=== PATIENT | male | born 1975 | race Caucasian/White ===

== ENCOUNTER 2020-10-31 18:25 | Emergency (ER) | payer OTHER, SELFPAY ==
[2020-10-31 18:26] VITALS: BP 104/83; PULSE 93; RESP 14; TEMP 36.7; O2SAT 99; BMI 22.5
--- NOTE | 2020-10-31 18:46 | ED.VIS.GEN ---
History of Present Illness Chief Complaint: Upper Extremity Injury Informant: Patient Narrative: Patient is a 45-year-old male who presents to the emergency department for left shoulder pain and difficulty moving. This has been present over the past 2 days. He relates this to a fall that occurred in June of last year whenever he slipped on the ice landing on his shoulder. He had significant pain and issues moving it but was never seen. He was doing well until the past few days when his symptoms reflared up. He denies any trauma this time. He does have a history of ankylosing spondylitis and has cervical fusions. He has neck pain on that left side as well. Any movements or pushing on the area makes it worse. He has been taking ibuprofen for it. He denies any headache or vision changes. No weakness or loss of sensation in other extremities. No chest pain or shortness of breath. No fevers or chills. No overlying skin changes. He has noticed a lump in his lateral left upper arm. Of note patient states he has not been compliant with his insulin and oral diabetic medications due to loss of insurance. He states he just regained this. He is currently searching for PCP now. Past Medical History - Allergies and Home Meds Allergies/Adverse Reactions: Allergies No Known Allergies Allergy (Verified 10/31/20 18:26) Primary Care Physician: Marc Delgado MD [STAFF PHYSICIAN] - As soon as possible Christian Keith DO [STAFF PHYSICIAN] - 2 Days Care Physician,No Primary [Primary Care Provider] - Prior records reviewed: Yes Past Medical History: - - Diabetes Surgical History: noncontributory Smoking Status: Former smoker Review of Systems All systems negative except as indicated General: Denies: Chills, Fever, Sweats Eyes: Denies: Visual changes - bilaterally, Diplopia ENT: Denies: Rhinorrhea, Sore throat Cardiovascular: Denies: Chest pain, Palpitations Respiratory: Denies: Dyspnea, Cough, Dyspnea on exertion Gastrointestinal: Denies: Abdominal pain, Nausea, Vomiting Genitourinary: Denies: Dysuria, Hematuria, Frequency Musculoskeletal: Reports: Neck pain, Extremity Pain. Denies: Back pain Skin: Denies: Rash, Wounds Neurological: Denies: Headache, Numbness Physical Exam Vital Signs/Narrative: Vital Signs Temp Pulse Resp BP Pulse Ox 10/31/20 18:26 98.1 F 93 14 104/83 H 99 Inital Vital Signs reviewed: Yes General: Well nourished, Well developed, No Acute Distress Head: Normocephalic, Atraumatic Eyes: Perrl, EOMI ENT: Moist mucous membranes, No rhinorrhea Neck: Supple, - - Patient has tenderness and taut musculature over the left trapezius muscle. Cardiovascular: Regular rate, Regular rhythm, No murmurs Respiratory: No distress, CTA bilaterally, Chest nontender Abdomen: Soft, Nontender, Nondistended, Normal bowel sounds Back: Nontender, Normal Inspection Extremities: Nontender, No edema, - - Patient does have a lump between the bicep and tricep concerning for a tendon rupture. Patient able to raise his arm over his head but this does cause significant pain. 2+ radial pulse. Sensation intact. Skin: Normal color, No rash Neurological: Alert, Oriented x3, Cranial nerves II-XII grossly intact, Normal Strength, Normal Sensation Psychological: Normal affect, Normal Mood Diagnostic/Tx/Re-eval - Medical Decision Making Patient presents to the ED for left shoulder pain with difficulty moving it. He also has pain in his neck. On physical exam he is very tender to palpation and has a tight musculature. He has a previous fall injury 4 months ago. Will check an x-ray of the shoulder. I concern for a tendon rupture and will make an orthopedic referral for MRI. Patient has regained his insurance and I will make a PCP referral. Will check [id number] glucose in the meantime. Patient's x-ray did not reveal any acute traumatic findings. His glucose was high in the 470 range. He is given a 6 unit subcu dose of insulin. He was previously on Metformin so I will write a prescription for this. I did give a PCP referral for him to follow-up with. Patient understands risks associated with hyperglycemia. I do have concern that he has a tendon tear in his shoulder. No evidence of infection. He is given a prescription for Flexeril as well as Naprosyn. He needs to have very close follow-up with the orthopedic surgeon as well as his PCP. Return precautions are reviewed with him. He is agreeable this plan. Discharged home in stable condition. All questions answered. ED Disposition - Plan for ED Patient: Disposition: Home or Assisted Living Diagnosis: Hyperglycemia, Shoulder pain, left Instructions: Shoulder Problems, ED Diabetic Hyperglycemia Prescriptions: cycloBENZAPRine HCl [Flexeril] 10 mg PO TID PRN 3 Days #9 tab PRN Reason: Muscle Spasm Prescription Printed Metformin HCl 500 mg PO BID 15 Days #30 tab Prescription Printed Naproxen [Naprosyn] 500 mg PO BID #14 tab Prescription Printed Referrals: Care Physician,No Primary [Primary Care Provider] - Marc Delgado MD [STAFF PHYSICIAN] - As soon as possible Christian Keith DO [STAFF PHYSICIAN] - 2 Days
--- NOTE | 2020-10-31 19:00 | RAD_ITS ---
STUDY: X-RAY - LEFT SHOULDER REASON FOR EXAM: Male, 45 years old. Pain, difficulty moving TECHNIQUE: 4 view(s) of the shoulder. COMPARISON: None. FINDINGS: Normal glenohumeral articulation. Normal acromioclavicular joint. Normal acromion. Normal humeral head and visualized proximal humerus. The soft tissue structures are unremarkable. Normal visualized pulmonary apex. RAD/Shoulder min 2 Views IMPRESSION: Normal x-ray examination of the shoulder. Electronically Signed: Thomas Boyd MD at 19:15 EDT Tel , Service support ,
[2020-10-31 19:15] LABS: Bedside Glucose 476 mg/dL (70-110)
[2020-10-31] MEDS: Insulin Lispro 100 UNIT/ML INSULN.PEN 6 UNIT SC (20:01)
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
[2020-10-31 21:05] LABS: Bedside Glucose 366 mg/dL (70-110)
[2020-10-31 21:10] VITALS: BP 116/84; PULSE 78; RESP 14; O2SAT 99
== END 2020-10-31 21:11 | disposition home or self-care (01) ==
LOC: ED 19:40
PROVIDERS: Emergency Provider Emergency Medicine
DX: M25.512 Pain in left shoulder (principal); R22.32 Localized swelling, mass and lump, left upper limb; E11.65 Type 2 diabetes mellitus with hyperglycemia; W00.0XXA Fall on same level due to ice and snow, initial encounter; Y93.9 Activity, unspecified; Y92.9 Unspecified place or not applicable; M45.2 Ankylosing spondylitis of cervical region; Z98.1 Arthrodesis status; Z91.14 Patient's other noncompliance with medication regimen; Z79.4 Long term (current) use of insulin; Z87.891 Personal history of nicotine dependence
CPT/HCPCS: 73030; 82962; 96372; 99282

== ENCOUNTER → 2020-11-03 11:33 | Outpatient (CLI) | payer OTHER, SELFPAY ==
[2020-11-03 10:09] VITALS: BMI 22.4
[2020-11-03 14:58] LABS: Absolute Lymphocyte Count 1.93 X10^3/uL (0.83-4.51); Absolute Neutrophil Count 4.8 X10^3/uL (2.0-7.7); Basophil# 0.03 X10^3/uL; Basophil% 0.4 % (0-1); Eosinophil# 0.16 X10^3/uL; Eosinophils% 2.1 % (0-5); Hematocrit 45.6 % (40-54); Hemoglobin 15.3 g/dL (13.0-16.5); Lymphocyte # 1.93 X10^3/ul (4.0); Lymphocyte % 25.5 % (19-41); Mean Corp Hgb Conc 33.6 g/dL (32-36); Mean Corpuscular Hgb 31.2 pg (27.0-32.0); Mean Corpuscular Volume 92.9 fL (80-94); Mean Platelet Vol. 9.8 fl (6.2-12.0); Monocyte# 0.64 X10^3/uL; Monocyte% 8.5 % (0-10); NRBC Flagged by Analyzer 0 % (0-5); Neutrophil # 4.78 X10^3/uL (2.7-7.7); Neutrophil % 63.1 % (47-70); Platelet Count 282 K/mm3 (150-450); RBC Distribution Width CV 11.7 % (11.6-14.6); RBC Distribution Width SD 39.9 fl (35.1-43.9); Red Blood Count 4.91 M/mm3 (4.6-6.2); White Blood Count 7.6 K/mm3 (4.4-11.0)
[2020-11-03 15:27] LABS: Hemoglobin A1c 11.7 % (3.8-5.6)
[2020-11-03 15:38] LABS: ALB/GLOB Ratio 1.1 RATIO (0.9-2.4); AST(SGOT) 11 U/L (15-37); Alanine Aminotransfer ALT/SGPT 27 U/L (16-61); Albumin, Serum 3.9 g/dL (3.2-5.0); Alkaline Phosphatase 167 U/L (45-117); Anion Gap 4 (5-15); BUN 15 mg/dL (7-18); BUN/Creat Ratio 19.2 RATIO (10-20); Chloride 97 mmol/L (98-107); Cholesterol 190 mg/dL (200); Creatinine, Serum 0.78 mg/dL (0.70-1.30); EST Glomerular Filtration Rate 115 mL/min (>60); Est Glom Filt Rate - Afr Amer 139 mL/min (>60); Globulin 3.7 g/dL (2.2-4.2); Glucose 350 mg/dL (74-106); High Density Lipoprotein 43 mg/dL; Potassium 4.3 mmol/L (3.5-5.1); Protein, Total 7.6 g/dL (6.4-8.2); Sodium Level 132 mmol/L (136-145); Thyroid Stim Hormone (TSH) 1.73 uIU/mL (0.358-3.74); Triglycerides 145 mg/dL; Very Low Density Lipoprotein 29 mg/dL (5-40)
[2020-11-06 08:34] LABS: C-Peptide 1.2 ng/mL (1.1-4.4)
== END ==
LOC: BIMLAB 11:34
PROVIDERS: PCP Internal Medicine; Referring Provider Internal Medicine; Visit Provider Internal Medicine
DX: F32.9 Major depressive disorder, single episode, unspecified (principal); E11.9 Type 2 diabetes mellitus without complications; K58.9 Irritable bowel syndrome, unspecified
CPT/HCPCS: 36415; 80053; 80061; 82306; 83036; 84443; 84681; 85025

== ENCOUNTER → 2020-11-18 07:15 | Outpatient (CLI) | payer OTHER, SELFPAY ==
[2020-11-09 08:47] VITALS: BMI 23.8
[2020-11-10 10:58] VITALS: BMI 23.8
--- NOTE | 2020-11-18 07:17 | MRI_ITS ---
ACR Level 3 findings have been noted. An addendum which confirms receipt of the report will follow. STUDY: MRI CERVICAL SPINE WITHOUT CONTRAST REASON FOR EXAM: Male, 45 years old. cervical radiculopathy L SHOULDER PAIN TECHNIQUE: Standardized fat and water weighted pulse sequences were obtained in the sagittal and axial planes. COMPARISON: None FINDINGS: Normal foramen magnum and brainstem-cervical cord junction. Normal cervical lordosis. C2-3: Normal endplates. Normal disc height, signal and morphology. Normal central canal and intervertebral neural foramina. C3-4: Normal endplates. Normal disc height, signal and morphology. Normal central canal and intervertebral neural foramina. There is increased cord signal within the left cord measuring approximately 6 x 12 mm without expansion of the spinal cord. C4-5: There is minimal disc space narrowing and endplate spondylosis. There is no significant disc herniation, central canal or foraminal stenosis. C5-6: There is minimal disc space narrowing and endplates spondylosis. Mild disc osteophyte complex with severe central canal stenosis. Uncovertebral arthropathy with mild right and moderate left foraminal stenosis. C6-7: There is mild disc space narrowing and endplates spondylosis. Mild disc osteophyte complex with moderate central canal stenosis. Uncovertebral arthropathy with moderate right and mild left foraminal stenosis. C7-T1: There is moderate disc space narrowing and endplates spondylosis. Mild disc osteophyte complex with mild central canal stenosis. Uncovertebral arthropathy with mild right and mild left foraminal stenosis. Normal cervical cord. MRI/Spine Cervical (Routine) IMPRESSION: C3/C4: Spinal cord lesions. Differential considerations includes demyelination, inflammatory and neoplastic disease. Further evaluation with contrast-enhanced MRI is recommended. C5/C6: Severe central canal stenosis. Moderate left foraminal stenosis. C6/7: Moderate central canal stenosis. Moderate right foraminal stenosis. Nonstandard Communication: Category 3. Electronically Signed: Kayla Chau MD at 14:22 EDT Tel , Service support ,
== END ==
LOC: MRI 07:17
PROVIDERS: PCP Internal Medicine; Referring Provider Internal Medicine; Visit Provider Internal Medicine
DX: M54.12 Radiculopathy, cervical region (principal)
CPT/HCPCS: 72141

== ENCOUNTER 2020-12-01 15:16 | Observation (INO) | payer OTHER, SELFPAY ==
[2020-11-10 10:58] VITALS: BMI 23.8
--- NOTE | 2020-11-28 09:14 | EKG12_ITS ---
Test Reason : PREOP Blood Pressure : / mmHG Vent. Rate : 101 BPM Atrial Rate : 101 BPM P-R Int : 136 ms QRS Dur : 084 ms QT Int : 320 ms P-R-T Axes : 050 033 041 degrees QTc Int : 414 ms Sinus tachycardia Otherwise normal ECG Confirmed by EDWARD TORRES, BENJAMÍN ([id number]), script editor JANET QUIROZ ([id number]) on 11/28/2020 2:07:38 PM Referred By: Leopoldo Marie Confirmed By:BENJAMÍN LEON MD
[2020-11-28 11:05] LABS: Magnesium 2.2 mg/dL (1.6-2.6)
[2020-11-28 11:37] LABS: HIV - WCH Non-Reactive (Nonreactive)
[2020-11-29 07:07] LABS: HEPATITIS B SURFACE AG Negative (Negative); Hepatitis A AB, Total Positive (Negative); Hepatitis A IgM Antibody Negative (Negative); Hepatitis B Core AB IgM Negative (Negative); Hepatitis B Core Ab Total Negative (Negative); Hepatitis C Ab <0.1 s/co ratio (0.0-0.9)
[2020-11-29 14:56] LABS: Hep B Surface Antibodies Non Reactive (.)
[2020-12-01] VITALS (12 sets, daily range): BP systolic 109–139; BP diastolic 81–96; PULSE 88–106; RESP 16–20; TEMP 36.6–37.2; O2SAT 94–100; BMI 23.0
--- NOTE | 2020-12-01 06:00 | HP_ITS ---
Intake Intake Visit Reasons: discuss Chief Complaint: 1 WEEK F/U Allergies No Known Allergies Allergy (Verified 11/25/20 15:02) [facility] Medical History Depression (Chronic) IBS (irritable bowel syndrome) (Chronic) Hypertriglyceridemia (Chronic) Drug abuse (Acute) Alcohol abuse (Acute) History of fracture of finger (Acute) Arthritis (Chronic) sudden weight loss (Acute) Diabetes (Chronic) unusual tiredness (Acute) Neck/Back Pain (Acute) Ankylosing spondylitis (Acute) absessed tooth removal (Acute) Surgical History H/O wisdom tooth extraction (Acute) Family History Other Family history not known due to adoption Social History (Updated 11/30/20 @ 13:[address] Leopoldo Marie DO) household members: significant other, other details: and gf's mother housing: house current occupational status: employed Tobacco: How many years used: 25 alcohol intake: former year quit: 2015 substance use type: former substance user Date of last use: 02/23/2018 what type of physical activity do you participate in: none do you feel safe at home: Yes HPI discuss: Surgical H&P: Yes Details: Parts of this documentation were recorded by a scribe, this documentation accurately reflects the service provided and the decisions made by me, Dr. Leopoldo Marie DO 11/30/20 [id number]. CHANDU WATSON is a 45 year old M here today for discussion of surgery with Dr. Marie that is scheduled for 12/01/2020. History and physical: Chief complaint: Severe pain on the left side of the neck that radiates into the left arm in a classic C7 and C6 dermatome. The pain has been there several weeks and he has lost strength in the left arm. Patient was sent to me by Dr. Nolasco because of the profound weakness in his left arm. Allergies: No known allergies Medications: Hydrocodone, 2 types of insulin. Past medical history: The patient was diagnosed with diabetes in his 20s over 20 years ago. For most of the time he has been on insulin as oral medication has failed to help him. At one point he was diagnosed with ankylosing spondylitis. However this is not affecting his neck. Past surgical history: Extraction of abscessed tooth Social history: He has a 25-year history of smoking cigarettes. He no longer drinks and quit in 2016. He has not done any drugs since 2018. He is employed and lives in a In a house with his girlfriend and his girlfriend's mother. Family history: Unknown as he was adopted. Review of systems: In general Chandu is a well-developed 45-year-old male. His head is normocephalic with no apparent lesions. He has no complaint with his eyes or his ears or his throat. He has no respiratory complaints and no cardiac complaints. Regarding GI he does have irritable bowel syndrome. Regarding genitourinary he has no complaints. Physical examination: Examination of his eyes demonstrate that he has the pupils that are equally reactive light accommodation. Examination of his ears was unremarkable. Semination was throat also unremarkable he has no evidence of bruits his larynx is in the midline and there are no masses or nodes palpated. Auscultation of the lungs reveals that is clear in all lung heredia with no adventitious sounds. Auscultation of his heart demonstrates that he has a normal rate and rhythm without murmurs. Palpation of his abdomen reveals it is soft and nontender there are no masses palpated and there is no evidence of organomegaly. Genitourinary it was waived. Musculoskeletal was remarkable for the findings due to his cervical herniations. These include marked weakness of the triceps the biceps and the extensors of the wrist all on the left. He has absence of the triceps reflex on the left that and the brachial red radialis reflex on the left. Neuro exam reveals a cranial nerves II through XII are grossly intact. Examination of the skin demonstrates that he has normal appearing skin with no skin lesions noted. The impression is that of severe left C7 and C6 radiculopathies with intractable pain and multiple neurological deficits. Procedures proposed: Anterior fusion C6-7. CPT Code: 61425 Anterior instrumentation C5-C7 CPT Code: 90766/59 Anterior fusion C5-6 CPT Code: 20359/51 Insertion of cage C6-7 CPT Code: 57619 Insertion of cage C5-6 CPT Code 29921/51 Assessment & Plan Problems 1. Radiculopathy affecting upper extremity M54.10 Coding Level of Care Code No Charge Diagnoses Radiculopathy affecting upper extremity M54.10 Time Spent (min) 20
[2020-12-01] MEDS: Acetaminophen 500 MG Tablet 1000 MG PO ×3 (06:07→22:25)
[2020-12-01 06:10] LABS: Bedside Glucose 335 mg/dL (70-110)
[2020-12-01] MEDS: Insulin Lispro 100 UNIT/ML INSULN.PEN SC ×4 (06:25→16:50)
[2020-12-01] MEDS: dexAMETHasone 10 MG/ML Vial 8 MG IV (07:15)
--- NOTE | 2020-12-01 07:30 | RAD_ITS ---
STUDY: X-RAY - CERVICAL SPINE REASON FOR EXAM: Male, 45 years old. ANTERIOR CERVICAL FUSION C5-6,C6-7 LEFT TECHNIQUE: 1 view(s) of the cervical spine were obtained. COMPARISON: None FINDINGS: A single lateral radiograph the cervical spine was obtained and operating room and demonstrates presence of metallic probe at the level of inferior endplate of C6.. RAD/Spine 1 View Any Level IMPRESSION: Radiograph during surgery. Electronically Signed: Thomas Boyd MD at 8:50 EDT Tel , Service support ,
--- NOTE | 2020-12-01 07:30 | DISC_PTH ---
PATIENT: COLEMAN WATSON LOC: MS3 U#:[id number] AGE/SX: 45/M [place] [facility] [place]: Dr. Myla Tee DO : 1975 BED: 1 DIS: 12/03/2020 SPEC #: [id number] RECD: 12/01/20 13:25 STATUS: SIMIN REQ #: [id number] ZACH: 12/01/20 07:[address]: Leopoldo Marie DEPT: SURGICAL PATHOLOGY RECD BY: Mane Nascimento ENTERED: 12/02/20 07:07 SP TYPE: DISC OTHR DR: MD Dr. Myla Fuentes DO Dr. Loren Kirchner, MD Dr. Marcus Newton, DO Tissues: A - Intervertebral disc, NOS B - Intervertebral disc, NOS Procedures: Surgery Specimen Level III Comments: @ Ordering doctor for SUIII edited from to @ sofia PRESCOTT at 12/02/20 0710 @ Submitting doctor edited from to @ sofia PRESCOTT at 12/02/2010 HEADER OPERATION: ERAS, anterior cervical fusion C5-6, C6-7 PRE-OP DIAGNOSIS: Radiculopathy affecting upper extremity TISSUE SUBMITTED: A - C5-6 disc, B - C6-7 disc MICROSCOPIC DIAGNOSIS A. C5-6 disc: Fragments of fibrocartilaginous tissue with focal degenerative changes and bone. B. C6-7 disc: Fragments of fibrocartilaginous tissue with focal degenerative changes and bone. ANGELIA:eleazar 12/05/2020 MICROSCOPIC DESCRIPTION Slides are reviewed. GROSS DESCRIPTION A - Received in fixative is one container labeled with the patient's name and designated C5-6 disc. The specimen consists of multiple irregular and somewhat indurated fragments of light lorenzo soft tissue that in aggregate measure 2.2 x 2 x 0.2 cm. The specimen is totally submitted in one cassette. B - Received in fixative is one container labeled with the patient's name and designated C6-7 disc. The specimen consists of multiple irregular and somewhat indurated fragments of light lorenzo soft tissue that in aggregate measure 2.2 x 2 x 0.2 cm. The specimen is totally submitted in one cassette. / AM:eleazar 12/02/20 TC:5 CPT: 61543 x2
[2020-12-01] MEDS: Cefazolin 2 GM in 0.9% Normal Saline 100 ML IV (07:41)
[2020-12-01] MEDS: Heparin 10,000 UNITS/10 ML Vial 10000 UNITS (08:45)
[2020-12-01] MEDS: Thrombin 5,000 IU Kit (PSA) 5,000 IU Vial 5000 IU TOPICAL (08:45)
--- NOTE | 2020-12-01 09:15 | RAD_ITS ---
STUDY: X-RAY - LUMBAR SPINE REASON FOR EXAM: Male, 45 years old. CERVICAL FUSION TECHNIQUE: 1 view(s) of the lumbar spine were obtained. COMPARISON: None FINDINGS: A single lateral radiograph the cervical spine was obtained in the operating room during surgery and demonstrates metallic probe within the anterior aspect of the disc space at C6-C7.. RAD/Spine 1 View Any Level IMPRESSION: Radiograph during surgery. Electronically Signed: Thomas Boyd MD at 8:51 EDT Tel , Service support ,
[2020-12-01 11:10] LABS: Bedside Glucose 180 mg/dL (70-110)
[2020-12-01 11:16] LABS: Bedside Glucose 184 mg/dL (70-110)
--- NOTE | 2020-12-01 11:50 | RAD_ITS ---
STUDY: X-RAY - CERVICAL SPINE REASON FOR EXAM: Male, 45 years old. Cervical fusion. Postoperative follow-up. TECHNIQUE: 3 lateral view(s) of the cervical spine were obtained. COMPARISON: None FINDINGS: Endotracheal tube present. 3 lateral images show placement of needle at the C6 vertebral body, placement of surgical instrument at the C6-7 interspace and anterior fusion from C5 to C7 with intervertebral disc prostheses. RAD/Spine 1 View Any Level IMPRESSION: Documentation images of anterior cervical spine fusion. Electronically Signed: Mal Moya MD at 12:22 EDT , Service support ,
--- NOTE | 2020-12-01 12:28 | PCM.OPRPT ---
Report of Operation Date of Procedure: 12/01/20 Description of Surgical Findings:: Preoperative diagnosis: Severe left C6 and C7 radiculopathy with intractable pain and neurological deficits secondary to hard disc disease at C6-7 and C5-6 Postoperative diagnoses: Same Procedures: #1 anterior cervical interbody fusion C6-7 CPT code: 00958 #2 application of 6-hole 45 mm spine plate CPT code: 11239/59 #3 anterior cervical interbody fusion C5-6 CPT code 88894/51 #4 insertion of titanium cage C6-7 CPT code: 11244 #5 insertion of titanium cage C5-6 CPT code: 92577/51 Surgeon: Dr. Marie assistant front office manager: Julian from surgery Anesthesia: General endotracheal anesthesia administered by [facility] Estimated blood loss: Less than 50 cc +60 cc of bone marrow aspirate right iliac crest Drains: 1/4 inch Mark Complications: None Procedure description: Patient was taken to the OR where he was placed under general endotracheal anesthesia after first being being put in the supine position on the operative table. Flexeril was placed from one wrist to the other and around his lower extremities. This was to be able to pull his shoulders down during x-ray and. Took a preoperative x-ray with the needle taped to the side of the neck so that we would know what level to start the skin incision. Note that the patient received preoperative Ancef 2 g and 8 mg of Decadron. The neck and the right iliac crest were then prepped and draped in standard fashion. I then started by incision at the midline and curved in line with longer's lines to the edge of the right sternocleidomastoid muscle. Cutaneous tissues were incised the length of the skin incision. I then undermined the subcutaneous tissues in both a cephalad and caudad direction and self-retaining wheat Love retractor was put in place. I then split the platysma near its medial border. Then exploited the cervical fascial planes starting with the superficial cervical fascia then the pretracheal fascia in this fashion I was able to identify the Carotid Pulse lateral on the inside of my finger as I move the midline structures to the left that is the trachea and the esophagus. We identify the precervical fascia identified the space thought to be C6/7. The intraoperative x-ray was taken the demonstrated that we were indeed at C6-7. I then cauterized and elevated the longus coli muscles off of either side at C6-7 and put the self-retaining gallery assistant retractors in place. We also had 1 in an up-and-down fashion giving us good access to C6-7. The anterior annulus with a 15 blade removed it and then continue to remove disc from within the disc space with pituitary rongeurs. We also remove the cartilage off both endplates urine using sharp angled curettes all the way back to the corner of the uncinate process and the spinal stenosis associated with it. Seeing a maria teresa bur I was able to start burring the uncinate process down into a thin shell. We then removed the thin shell off of the base of the nerve root using sharp small angled curettes. This completely decompressed the left C7 nerve root. Note also that we did neuro monitoring throughout the procedure. Removed the remaining cartilage off the endplates note that I did use an intervertebral interbody distractor to give me good access. I also opened the right side even though he had no right-sided pain as it was somewhat stenotic also. I probed the foramen with a hook and found the right C6-7 foramen to be completely open now. All remaining cartilage was scraped off of the endplates. Months for our first cage were then done using trials. I decided on 8 mm large 16-1/2 x 14 mm cage. Small puncture incision was made over the right ASIS and a Jamshidi needle tamped into place 60 cc of bone marrow aspirate were obtained. These were handed off to the carpet cleaning technician in the room and down the blood recover the stem cells and concentrate them 8-10 times. These were then given back to us. I then filled the cage with a spongy DBM bone and soaked the cage and the DBM bone in the patient's own concentrated stem cells. Then tamped into place and countersunk a couple of millimeters the C6-7 level. We then moved our instrumentation up to C5-6. I then elevated the longus coli muscles on either side of the disc space at C5-6. The gallery assistant retractors were again put in place giving us access to the C5-6. C5-6 was calcified completely covering up the space I had to use an osteotome to cut the osteophyte off before I could identify the disc. I then remove the anterior annulus with a 15 blade. I then removed more nucleus from the disc space with pituitary rongeurs. Fracture was put on the right side after some of the removal of the nucleus. Reacted I was able to use the maria teresa bur to bur down the uncinate process at the back corner. The same technique was used that I used before that is burring followed by the instillation of cold saline to prevent thermal damage to the nerve. Was done repeatedly until we had a very thin shell of bone left. I then removed the thin shell of bone with sharp angled curettes then find the base of the nerve root. It was then probed with a nerve hook and was found to be very open. This completely decompressed the left C6 nerve root. Also opened up the right side in the same fashion even though he did not have any right-sided symptoms. All the remaining cartilage was scraped off of the endplates. We then used our trials and again found that we needed an 8 mm cage. We broach the space repeatedly with a 9 mm broach. Then filled the cage with spongy DBM and soaked it in the patient's own stem cells. Was then tamped into place and countersunk a couple of millimeters. We then centered a 45 mm spider spine plate and used a single pin to hold it in place. Then used the awl to punch a hole first into 6 7. 16mm screw was then inserted. Put one on the right side at C6. Using the awl and the self-tapping 16mm screw. Pin was then removed out of C6 and another 16mm screw was inserted we then inserted pull fourth 16mm screw into C7. Placed the last 2 into C5 burst of course using the awl and then with a 16mm self-tapping screws. That with the spider system the screws locked into place automatically as they are inserted. There was no need to activate a locking system. Then observed that in the left lateral projection on x-ray was found to be very satisfactory with good position of the cages the plate and the screws. Note that the plate and this cages are totally independent of each other. They are not integral to each other. Hence the use of CPT code #08767/59. Finally after thorough irrigation amniotic membrane patches were placed over the plate to prevent adhesions to the trachea or esophagus. 1/4 inch Anderson drain was inserted and closure was begun. The platysma was closed in running fashion with 5-0 Vicryl followed by closure of the subcutaneous tissues with 5-0 Vicryl in interrupted fashion. A running subcuticular stitch with 5-0 nylon was then put in place to approximate the edges. We placed a safety pin through the drain to prevent a suction into the wound. Dressings were applied. The patient was then recovered in the OR he was moved to his hospital bed and taken to recovery in satisfactory condition. The end of operative summary on Chandu Pappas. This is Dr. Marie dictating.
[2020-12-01] MEDS: Lactated Ringers 1,000 ML 100 ML IV ×2 (12:46→16:48)
[2020-12-01 13:01] LABS: Bedside Glucose 212 mg/dL (70-110)
[2020-12-01] MEDS: dexAMETHasone 4 MG/ML Vial IV ×2 (14:32→19:36)
[2020-12-01] MEDS: Cefazolin 1 GM/50 ML BAG IV ×2 (15:19→22:33)
[2020-12-01] MEDS: Morphine 4 MG/ML Syringe IV ×2 (15:54→19:36)
[2020-12-01] MEDS: 0.9% Saline Lock 10 ML Syringe IV (15:55)
--- NOTE | 2020-12-01 16:24 | CON.PCM_ITS ---
Problem List (1) Ankylosing spondylitis Status: Chronic (2) Type 2 diabetes mellitus Status: Chronic (3) IBS (irritable bowel syndrome) Status: Chronic (4) Alcohol abuse Status: Chronic Reason for Consult Date of Consultation: 12/01/20 Reason for Consultation: Postoperative medical management. History of Present Illness: The patient is a 45 year old M with past medical history as mentioned above who underwent C5-C6 and C6-C7 anterior cervical spinal fusion with insertion of titanium cage for severe left C6 and C7 radiculopathy and I was asked to see this patient for postoperative medical management. Currently, patient is sitting in his bed, comfortable. His neck pain is manageable. His vital signs are stable. He had a history of type 2 diabetes mellitus and patient stated that because he had no health insurance, he did not take his insulin for almost 1 year and that is why his hemoglobin A1c was elevated around 2 weeks ago. At this time, he mentioned that he started back on insulin and his blood sugar has been getting better and has been under 200s. He had a history of ankylosing spondylitis and he only takes naproxen [id number] as needed for arthritis pain. He has history of depression but currently he is not taking any antidepressant medications. Routine blood work that was done on on November 03, 2020 reviewed, revealed sodium of 132 which is probably due to pseudohyponatremia secondary to hyperglycemia. Blood glucose at that time was 350. Hemoglobin A1c was 11.7%. LFT was unremarkable. Currently, he is on IV cefazolin for perioperative prophylaxis and on IV dexamethasone as well. Past Medical History Past Medical History (Chronic Problems): Chronic Problems (Last Updated 12/01/20 @ 16:[address] Abyb Machado MD) Ankylosing spondylitis (Chronic) Type 2 diabetes mellitus (Chronic) Depression (Chronic) IBS (irritable bowel syndrome) (Chronic) Hypertriglyceridemia (Chronic) Drug abuse (Chronic) Alcohol abuse (Chronic) Arthritis (Chronic) Medical History: Medical History (Last Updated 12/01/20 @ 16:[address] Abby Machado MD) Depression (Chronic) F32.9 IBS (irritable bowel syndrome) (Chronic) K58.9 Hypertriglyceridemia (Chronic) E78.1 Drug abuse (Chronic) F19.10 Alcohol abuse (Chronic) F10.10 Arthritis (Chronic) M19.90 Ankylosing spondylitis M45.9 absessed tooth removal Allergies No Known Allergies Allergy (Verified 11/25/20 15:02) Home Medications: Ambulatory Orders Medication Instructions Recorded multivitamin 1 tab PO DAILY 11/03/20 insulin glargine 100 unit/mL (3 20 unit SC QPM ml 11/09/20 mL) subcutaneous pen hydrocodone 7.5 mg-acetaminophen 1 tablet PO Q6H PRN #40 tablet 11/21/20 325 mg tablet Insulin Lispro [Humalog Kwikpen] 6 unit SC TID 11/25/20 Surgical History: Surgical History (Last Reviewed 11/10/20 @ 10:58 by Marjorie Orellana) H/O wisdom tooth extraction K08.409 Surgical History: noncontributory Psychiatric History: Depression Lives: Spouse/ Significant Other Smoking Status: Current every day smoker Tobacco Use: Cigarettes Alcohol: Occasional Drugs: None - *Family History Maternal Family History: Family History (Last Reviewed 11/10/20 @ 10:58 by Marjorie Orellana) Other Family history not known due to adoption Review of Systems Constitutional: Denies: Anorexia, Chills, Fever, Malaise, Weakness Eyes: Denies: Blurred vision, Double vision, Drainage, Redness HEENT: Denies: Difficulty Hearing, Ear Pain, Eye Pain, Nasal bleeding, Sore Throat Cardiovascular: Denies: Chest Pain, Chest Pressure, Edema, Heaviness, Palpitations, Syncope Respiratory: Denies: Cough, Pleuritic Pain, Shortness of Breath, Sputum production, Wheezing Gastrointestinal: Denies: Abdominal Pain, Constipation, Diarrhea, Nausea, Vomiting Genitourinary: Denies: Dysuria, Frequency, Hematuria Musculoskeletal: Reports: Neck Pain. Denies: Arm Pain, Back Pain, Foot Pain Skin: Denies: Dryness, Rash Neurological: Denies: Balance problems, Double vision, Slurred speech, Conf usion, Headaches, Incoordination Psychiatric: Reports: Depression. Denies: Anxiety, Suicidal Ideations Endocrine: Denies: Change in Body Habitus, Polydipsia, Polyuria - Physical Exam Vitals/I&O's: Vital Signs Temp Pulse Resp BP Pulse Ox 97.8 F 102 H 18 138/91 H 97 12/01/20 15:02 12/01/20 15:02 12/01/20 15:02 12/01/20 15:02 12/01/20 16:09 Oxygen Flow Rate (L/min) 6 Oxygen Delivery Method Room Air Weight: 130 lb Body Mass Index (BMI) 23.0 Finger Stick Blood Glucose 366 Intake and Output for Last 24 Hours 11/29/20 11/30/20 12/01/20 23:59 23:59 23:59 Intake Total 2263.5 / 2263.5 Output Total 950 / 950 Balance 1313.5 / 1313.5 General: Alert, Oriented x3, Cooperative, No apparent distress HEENT: Atraumatic, PERRLA, EOMI, Normocephalic Oral: Moist Mucosa, No Gingival or Mucosal Lesions/ Ulcerations Neck: Supple, No JVD, Negative Carotid Bruits, Trachea Midline, Thyroid Normal Size and Texture Lungs: Clear to auscultation, Normal air movement, No rhonchi, No wheeze, No rales Cardiovascular: Regular rate, Regular Rhythm, Normal S1, Normal S2, PMI Normal Abdomen: Bowel Sounds Present, Soft, Non Tender, Non-Distended, No Hepato- splenomegaly Extremities: No clubbing, No cyanosis, No edema Skin: No rashes, No breakdown Lymphatic: No Cervical, Supraclavicular, or Inguinal Adenopathy Neurological: Cranial nerves II-XII grossly intact, Motor Exam 5/5 strength throughout Psych/Mental Status: Normal Affect, Appropriate, Alert and oriented to time, place, person, mood and affect Microbiology Past 72 Hours 11/30/20 09:10 Nasal Secretion SARS-CoV-2 Antigen (Rapid) - Final 11/28/20 09:37 Swab (Method) Nasal Screen MRSA/MSSA - Final Laboratory Results 12/01/20 06:03: POC Glucose 335 H 12/01/20 09:10: POC Glucose 180 H 12/01/20 11:11: POC Glucose 184 H 12/01/20 12:56: POC Glucose 212 H Current Medications Acetaminophen (Acetaminophen 500 Mg Tablet) 1,000 mg PO Q8 AD[facility] Last Admin: 12/01/20 15:20 Dose: 1,000 mg Documented by: Dexamethasone Sodium Phosphate (Dexamethasone 4 Mg/Ml Vial) 4 mg IV X1 ONE Stop: 12/01/20 20:01 Dexamethasone Sodium Phosphate (Dexamethasone 4 Mg/Ml Vial) 2 mg IV X1 ONE Stop: 12/02/20 02:01 Dexamethasone Sodium Phosphate (Dexamethasone 4 Mg/Ml Vial) 2 mg IV X1 ONE Stop: 12/02/20 08:01 Enteral Nutritional Formula (Ensure Surgery 237 Ml Liquid) 237 ml PO TIDCM [facility] Famotidine (Famotidine 20 Mg Tablet) 20 mg PO BID [facility] Lactated Ringer's () 1,000 mls @ 100 mls/hr IV .Q10H [facility] Stop: 12/01/20 22:19 Last Admin: 12/01/20 12:46 Dose: 100 mls/hr Documented by: Cefazolin Sodium () 1 gm in 50 mls @ 100 mls/hr IV Q8H [facility] Stop: 12/01/20 23:59 Last Infusion: 12/01/20 16:00 Dose: Infused Documented by: Sodium Chloride () 250 mls @ 15 mls/hr IV .[id number] PRN PRN Reason: Saline Flush Sodium Chloride () 250 mls @ 15 mls/hr IV .[id number] PRN PRN Reason: Additional IVPB Infusion Insulin Glargine (Insulin Glargine 100 Units/Ml Pen) 20 units SC QHS [facility] Insulin Human Lispro (Insulin Lispro 100 Unit/Ml Insuln.Pen) 6 unit SC TIDCM [facility] Insulin Human Lispro (Insulin Lispro 100 Unit/Ml Insuln.Pen) 0 unit SC Q6 [facility]; Protocol Morphine Sulfate (Morphine 4 Mg/Ml Syringe) 2 - 4 mg IV Q2H PRN PRN PRN Reason: Pain Score 6-10 Last Admin: 12/01/20 15:54 Dose: 2 mg Documented by: Ondansetron HCl (Ondansetron 4 Mg/2 Ml Vial) 4 mg IV Q8H PRN PRN PRN Reason: NAUSEA Senna/Docusate Sodium (Senna/Docusate Sodium 1 Tablet) 2 tablet PO BID [facility] Sodium Chloride (0.9% Saline Lock 10 Ml Syringe) 10 - 40 ml IV UD PRN PRN Reason: SALINE FLUSH Last Admin: 12/01/20 15:55 Dose: 10 ml Documented by: Tramadol HCl (Tramadol 50 Mg Tablet) 50 - 100 mg PO Q6H PRN PRN PRN Reason: Pain Score 4-5 Zolpidem Tartrate (Zolpidem Tartrate 5 Mg Tablet) 5 mg PO QHS PRN PRN PRN Reason: INSOMNIA Assessment/Plan This is a 45 years old male patient underwent elective C5-C6 and C6-C7 anterior cervical spine fusion and I was asked to see this patient for postoperative medical management. #1 status post C5-C6/C6-C7 anterior cervical spine fusion with insertion of titanium cage: This was done for severe left C6-C7 radiculopathy with intractable pain and neurological deficit, postoperative day 0. Currently, patient's vitals are stable. He is on IV morphine and tramadol as needed for pain. He is on IV cefazolin for perioperative prophylaxis and he is also on IV Decadron. Preoperative routine blood work reviewed. Neck pain is manageable and under control at this time. Spine surgery on the case. Plan: Repeat CBC and BMP tomorrow morning. #2 uncontrolled type 2 diabetes mellitus: Patient stated that he had no health insurance and did not take his insulin for almost a year. Currently, he is back on insulin both glargine and review Humalog. He mentioned that his glucose has been usually below 200. Hemoglobin A1c was 11.7% on November 03, 2020. Plan: Accu-Cheks every 6 hours because patient is on IV Decadron, resume insulin glargine nightly, premeal Humalog, insulin sliding scale. #3 depression: Currently, he is not on any medication for depression. Denied any suicidal ideations or intentions. #4 ankylosing spondylitis: He takes only naproxen as needed [id number]. #5 history of alcohol abuse: Currently, he drinks very occasionally. #6 DVT prophylaxis: SCDs. This note was generated with [employer] dictation software. It may contain incorrect words, spelling, and punctuation that were not noted in checking the note before signing. Inpatient E&M: 04460 Init Hosp L2
[2020-12-01] MEDS: Insulin Lispro 100 UNIT/ML INSULN.PEN 6 UNIT SC (16:50)
[2020-12-01 17:10] LABS: Bedside Glucose 275 mg/dL (70-110)
[2020-12-01] MEDS: Famotidine 20 MG Tablet PO (22:25)
[2020-12-01] MEDS: Senna/Docusate Sodium 1 Tablet 2 TABLET PO (22:27)
[2020-12-01 22:35] LABS: Bedside Glucose 248 mg/dL (70-110)
[2020-12-02 00:05] VITALS: BP 141/90; PULSE 106; RESP 16; TEMP 36.9; O2SAT 96
[2020-12-02] MEDS: Insulin Lispro 100 UNIT/ML INSULN.PEN SC ×5 (00:21→23:00)
[2020-12-02] MEDS: dexAMETHasone 4 MG/ML Vial 2 MG IV ×2 (02:19→09:18)
[2020-12-02] MEDS: Morphine 4 MG/ML Syringe IV (02:22)
[2020-12-02 05:46] LABS: Bedside Glucose 227 mg/dL (70-110)
[2020-12-02 05:48] VITALS: BP 135/79; PULSE 112; RESP 16; TEMP 36.7; O2SAT 95
[2020-12-02] MEDS: Acetaminophen 500 MG Tablet 1000 MG PO ×3 (06:10→22:59)
[2020-12-02 06:16] LABS: Absolute Lymphocyte Count 0.95 X10^3/uL (0.83-4.51); Absolute Neutrophil Count 15.7 X10^3/uL (2.0-7.7); Basophil# 0.02 X10^3/uL; Basophil% 0.1 % (0-1); Hemoglobin 14.2 g/dL (13.0-16.5); Lymphocyte # 0.95 X10^3/ul (0.83-4.51); Lymphocyte % 5.3 % (19-41); Mean Corp Hgb Conc 33.8 g/dL (32-36); Mean Corpuscular Hgb 31.2 pg (27.0-32.0); Mean Corpuscular Volume 92.3 fL (80-94); Mean Platelet Vol. 9.5 fl (6.2-12.0); Monocyte% 5.6 % (0-10); NRBC Flagged by Analyzer 0 % (0-5); Neutrophil # 15.66 X10^3/uL (2.7-7.7); Neutrophil % 88.2 % (47-70); Platelet Count 237 K/mm3 (150-450); RBC Distribution Width CV 11.9 % (11.6-14.6); RBC Distribution Width SD 40.7 fl (35.1-43.9); Red Blood Count 4.55 M/mm3 (4.6-6.2); White Blood Count 17.8 K/mm3 (4.4-11.0)
[2020-12-02 06:39] LABS: Anion Gap 4 (5-15); BUN 12 mg/dL (7-18); BUN/Creat Ratio 17.1 RATIO (10-20); Calcium,Total 8.8 mg/dL (8.5-10.1); Chloride 103 mmol/L (98-107); EST Glomerular Filtration Rate 131 mL/min (>60); Est Glom Filt Rate - Afr Amer 158 mL/min (>60); Estimated Creatinine Clearance 109.51 ml/min; Glucose 240 mg/dL (74-106); Sodium Level 136 mmol/L (136-145)
[2020-12-02 08:37] VITALS: BP 133/89; PULSE 105; RESP 16; TEMP 37.1; O2SAT 95
[2020-12-02 09:00] LABS: Bedside Glucose 278 mg/dL (70-110)
[2020-12-02] MEDS: traMADol 50 MG Tablet PO ×2 (09:12→22:58)
[2020-12-02] MEDS: Senna/Docusate Sodium 1 Tablet 2 TABLET PO ×2 (09:13→22:59)
[2020-12-02] MEDS: Insulin Lispro 100 UNIT/ML INSULN.PEN 10 UNIT SC ×3 (09:13→16:59)
[2020-12-02] MEDS: Famotidine 20 MG Tablet PO ×2 (09:13→22:59)
[2020-12-02] MEDS: Ensure Surgery 237 ML LIQUID PO ×2 (09:19→16:58)
--- NOTE | 2020-12-02 09:38 | CASEMGMT ---
Addendum entered by Kimmy Wong 12/02/20 11:09: ANTONIA FONTENOT in to pt room. Pt states he has a glucometer, insulin, lancets and test strips. Pt states he just stocked up. Pt reports being I with BGM use. Original Note: ANTONIA FONTENOT in to pt room to discuss dc planning. Pt states he does not use a device to ambulate. Requesting information on a shower chair. Provided info. Pt has no issues with going home. Denies further questions or concerns at this time.
[2020-12-02 11:56] LABS: Bedside Glucose 373 mg/dL (70-110)
--- NOTE | 2020-12-02 13:52 | PCM.PN.BLA ---
Progress Note Postop day #1: Patient is seen on rounds. His left arm pain is completely gone. Length of his wrist extensors has increased dramatically since the surgery. The biceps strength is about the same. Triceps strength is also increased. His voice is a little hoarse he but not bad. He has no Dhiraj syndrome. I change the dressing and removed the drain. Incision is dry and healing well. Of his labile blood sugar it would be mtz to keep him 1 more day in the hospital for Dr. Tee to get better control of his glucose. Also recommended by his ripening room attendant Dr. Tara Nolasco. Anticipate him going home tomorrow. Progress is quite satisfactory.
[2020-12-02 14:30] VITALS: BP 140/91; PULSE 107; RESP 18; TEMP 36.6; O2SAT 95
--- NOTE | 2020-12-02 15:12 | PN_ITS ---
Subjective: Patient reports that he is feeling much better since admission and having his surgery. He denies any nausea or vomiting. Is urinating without difficulty. His pain is controlled. Vitals/I&O's: Vital Signs Temp Pulse Resp BP Pulse Ox 97.9 F 107 H 18 140/91 H 95 12/02/20 14:30 12/02/20 14:30 12/02/20 14:30 12/02/20 14:30 12/02/20 14:30 Oxygen Flow Rate (L/min) 6 Oxygen Delivery Method Room Air Weight: 58.967 kg Body Mass Index (BMI) 23.0 Finger Stick Blood Glucose 366 Intake and Output for Last 24 Hours 11/30/20 12/01/20 12/02/20 23:59 23:59 23:59 Intake Total 2666.83 / 2666.83 2450 / 2450 Output Total 950 / 950 4600 / 4600 Balance 1716.83 / 1716.83 -2150 / -2150 General: Alert, Oriented x3, Cooperative, No apparent distress, Well developed, Well nourished HEENT: Atraumatic, Normocephalic Neck: - - Soft c-collar in place Lungs: Clear to auscultation, Normal air movement, No rhonchi, No wheeze, No rales Cardiovascular: Regular rate, Regular Rhythm, Normal S1, Normal S2, No murmurs, No Ectopic Activity, No rub noted, No Gallop Abdomen: Bowel Sounds Present, Soft, Non Tender, Non-Distended, No Hepato- splenomegaly Extremities: No clubbing, No cyanosis, No edema, Capillary Refill Less than 3 Seconds, Peripheral Pulses Normal Neurological: Cranial nerves II-XII grossly intact, Neuro grossly intact Psych/Mental Status: Normal Affect, Appropriate Microbiology Past 72 Hours 11/30/20 09:10 Nasal Secretion SARS-CoV-2 Antigen (Rapid) - Final 11/28/20 09:37 Swab (Method) Nasal Screen MRSA/MSSA - Final Laboratory Results 12/01/20 16:46: POC Glucose 275 H 12/01/20 22:30: POC Glucose 248 H 12/02/20 05:41: POC Glucose 227 H 12/02/20 05:46: WBC 17.8 H, RBC 4.55 L, Hgb 14.2, Hct 42.0, MCV 92.3, MCH 31.2, MCHC 33.8, RDW Std Deviation 40.7, RDW Coeff of Lary 11.9, Plt Count 237, MPV 9.5, Immature Gran % (Auto) 0.800, Neut % (Auto) 88.2 H, Lymph % (Auto) 5.3 L, [place] % (Auto) 5.6, Eos % (Auto) 0.0, Baso % (Auto) 0.1, Absolute Neuts (auto) 15.7 H, Absolute Lymphs (auto) 0.95, Nucleated RBC % 0 12/02/20 05:46: Sodium 136, Potassium 4.0, Chloride 103, Carbon Dioxide 29.0, Anion Gap 4 L, BUN 12, Creatinine 0.70, Estim Creat Clear Calc 109.51, Est GFR (MDRD) Af Amer 158, Est GFR (MDRD) Non-Af 131, BUN/Creatinine Ratio 17.1, Glucose 240 H, Calcium 8.8 12/02/20 08:55: POC Glucose 278 H 12/02/20 11:49: POC Glucose 373 H Current Medications Acetaminophen (Acetaminophen 500 Mg Tablet) 1,000 mg PO Q8 [facility] Last Admin: 12/02/20 14:11 Dose: 1,000 mg Documented by: Enteral Nutritional Formula (Ensure Surgery 237 Ml Liquid) 237 ml PO TIDCM [facility] Last Admin: 12/02/20 13:00 Dose: Not Given Documented by: Famotidine (Famotidine 20 Mg Tablet) 20 mg PO BID [facility] Last Admin: 12/02/20 09:13 Dose: 20 mg Documented by: Sodium Chloride () 250 mls @ 15 mls/hr IV .[id number] PRN PRN Reason: Saline Flush Sodium Chloride () 250 mls @ 15 mls/hr IV .[id number] PRN PRN Reason: Additional IVPB Infusion Insulin Glargine (Insulin Glargine 100 Units/Ml Pen) 30 units SC QHS [facility] Insulin Human Lispro (Insulin Lispro 100 Unit/Ml Insuln.Pen) 0 unit SC Q6 [facility]; Protocol Last Admin: 12/02/20 12:53 Dose: 6 units Documented by: Insulin Human Lispro (Insulin Lispro 100 Unit/Ml Insuln.Pen) 10 unit SC TIDCM [facility] Last Admin: 12/02/20 12:53 Dose: 10 u Documented by: Morphine Sulfate (Morphine 4 Mg/Ml Syringe) 2 - 4 mg IV Q2H PRN PRN PRN Reason: Pain Score 6-10 Last Admin: 12/02/20 02:22 Dose: 4 mg Documented by: Ondansetron HCl (Ondansetron 4 Mg/2 Ml Vial) 4 mg IV Q8H PRN PRN PRN Reason: NAUSEA Senna/Docusate Sodium (Senna/Docusate Sodium 1 Tablet) 2 tablet PO BID [facility] Last Admin: 12/02/20 09:13 Dose: 2 tablet Documented by: Sodium Chloride (0.9% Saline Lock 10 Ml Syringe) 10 - 40 ml IV UD PRN PRN Reason: SALINE FLUSH Last Admin: 12/01/20 15:55 Dose: 10 ml Documented by: Tramadol HCl (Tramadol 50 Mg Tablet) 50 - 100 mg PO Q6H PRN PRN PRN Reason: Pain Score 4-5 Last Admin: 12/02/20 09:12 Dose: 100 mg Documented by: Zolpidem Tartrate (Zolpidem Tartrate 5 Mg Tablet) 5 mg PO QHS PRN PRN PRN Reason: INSOMNIA STROKE Vital Signs/Narrative: Vital Signs Temp Pulse Resp BP Pulse Ox 12/02/20 14:30 97.9 F 107 H 18 140/91 H 95 Medical Necessity - Tobacco Use Smoking Status: Current every day smoker Tobacco Use: Cigarettes Assessment/Plan ASSESSMENT Postop day anterior cervical spinal fusion at C5-C6 and C6-C7 C6-C7 radiculopathy Leukocytosis [id number] History of ankylosing spondylitis IBS History of drug use/alcohol use Tobacco abuse PLAN -Blood sugars are currently uncontrolled related to Decadron use -Increase insulins -Lantus increased to 30 units at at bedtime -Humalog increased to 10 units 3 times daily with meals -I would persist with these increases until the Decadron has been completed -Excess blood sugar management and glycemic control will improve after the steroids are no longer being given -Pain management per primary -Bowel regimen place -Suspect discharge tomorrow -Recommend tobacco cessation to improve healing and recurrent issues Inpatient E&M: 98411 [facility] Hosp L2
[2020-12-02 17:06] LABS: Bedside Glucose 232 mg/dL (70-110)
[2020-12-02 20:22] VITALS: BP 140/93; PULSE 90; RESP 16; TEMP 36.7; O2SAT 97
[2020-12-02 23:07] VITALS: BP 136/95; PULSE 84; RESP 16; TEMP 36.4; O2SAT 97
[2020-12-02 23:11] LABS: Bedside Glucose 239 mg/dL (70-110)
[2020-12-03] MEDS: traMADol 50 MG Tablet PO ×3 (00:53→13:34)
[2020-12-03 05:19] VITALS: BP 125/85; PULSE 71; RESP 16; TEMP 36.6; O2SAT 97
[2020-12-03] MEDS: Acetaminophen 500 MG Tablet 1000 MG PO ×2 (05:22→13:34)
[2020-12-03 05:31] LABS: Bedside Glucose 118 mg/dL (70-110)
[2020-12-03] MEDS: Senna/Docusate Sodium 1 Tablet 2 TABLET PO (08:21)
[2020-12-03] MEDS: Ensure Surgery 237 ML LIQUID PO ×2 (08:21→13:38)
[2020-12-03] MEDS: Insulin Lispro 100 UNIT/ML INSULN.PEN 10 UNIT SC ×2 (08:22→13:34)
[2020-12-03] MEDS: Famotidine 20 MG Tablet PO (08:22)
[2020-12-03 09:00] VITALS: BP 142/99; PULSE 85; RESP 14; TEMP 36.6; O2SAT 99
--- NOTE | 2020-12-03 12:05 | PCM.PN.HOSP ---
Subjective: States he continues to feel better. He reports he is going home today. We discussed his history of smoking and he states that he is quitting. Vitals/I&O's: Vital Signs Temp Pulse Resp BP Pulse Ox 97.8 F 85 14 142/99 H 99 12/03/20 09:00 12/03/20 09:00 12/03/20 09:00 12/03/20 09:00 12/03/20 09:00 Oxygen Flow Rate (L/min) 6 Oxygen Delivery Method Room Air Weight: 58.967 kg Body Mass Index (BMI) 23.0 Finger Stick Blood Glucose 366 Intake and Output for Last 24 Hours 12/01/20 12/02/20 12/03/20 23:59 23:59 23:59 Intake Total 2666.83 / 2666.83 3050 / 3050 Output Total 950 / 950 5250 / 5250 Balance 1716.83 / 1716.83 -2200 / -2200 General: Alert, Oriented x3, Cooperative, No apparent distress, Well developed, Well nourished HEENT: Atraumatic, Normocephalic Oral: Moist Mucosa Neck: Supple, Trachea Midline Lungs: No rhonchi, No wheeze, No rales, Diminished Cardiovascular: Regular rate, Regular Rhythm, Normal S1, Normal S2, No murmurs, No Ectopic Activity, No rub noted, No Gallop Abdomen: Bowel Sounds Present, Soft, Non Tender, Non-Distended Extremities: No clubbing, No cyanosis, No edema, Capillary Refill Less than 3 Seconds, Peripheral Pulses Normal Skin: No rashes, No breakdown Musculoskeletal: No Tenderness to Palpation of Joints or Extremities, No Muscle Wasting Psych/Mental Status: Normal Affect, Appropriate Microbiology Past 72 Hours 11/30/20 09:10 Nasal Secretion SARS-CoV-2 Antigen (Rapid) - Final Laboratory Results 12/02/20 16:56: POC Glucose 232 H 12/02/20 22:57: POC Glucose 239 H 12/03/20 05:21: POC Glucose 118 H Current Medications Acetaminophen (Acetaminophen 500 Mg Tablet) 1,000 mg PO Q8 [facility] Last Admin: 12/03/20 05:22 Dose: 1,000 mg Documented by: Enteral Nutritional Formula (Ensure Surgery 237 Ml Liquid) 237 ml PO TIDCM [facility] Last Admin: 12/03/20 08:21 Dose: 237 ml Documented by: Famotidine (Famotidine 20 Mg Tablet) 20 mg PO BID [facility] Last Admin: 12/03/20 08:22 Dose: 20 mg Documented by: Sodium Chloride () 250 mls @ 15 mls/hr IV .[id number] PRN PRN Reason: Saline Flush Sodium Chloride () 250 mls @ 15 mls/hr IV .[id number] PRN PRN Reason: Additional IVPB Infusion Insulin Glargine (Insulin Glargine 100 Units/Ml Pen) 30 units SC QHS [facility] Last Admin: 12/02/20 22:58 Dose: 30 u Documented by: Insulin Human Lispro (Insulin Lispro 100 Unit/Ml Insuln.Pen) 0 unit SC Q6 [facility]; Protocol Last Admin: 12/03/20 05:22 Dose: Not Given Documented by: Insulin Human Lispro (Insulin Lispro 100 Unit/Ml Insuln.Pen) 10 unit SC [facility] Last Admin: 12/03/20 08:22 Dose: 10 u Documented by: Morphine Sulfate (Morphine 4 Mg/Ml Syringe) 2 - 4 mg IV Q2H PRN PRN PRN Reason: Pain Score 6-10 Last Admin: 12/02/20 02:22 Dose: 4 mg Documented by: Ondansetron HCl (Ondansetron 4 Mg/2 Ml Vial) 4 mg IV Q8H PRN PRN PRN Reason: NAUSEA Senna/Docusate Sodium (Senna/Docusate Sodium 1 Tablet) 2 tablet PO BID [facility] Last Admin: 12/03/20 08:21 Dose: 2 tablet Documented by: Sodium Chloride (0.9% Saline Lock 10 Ml Syringe) 10 - 40 ml IV UD PRN PRN Reason: SALINE FLUSH Last Admin: 12/01/20 15:55 Dose: 10 ml Documented by: Tramadol HCl (Tramadol 50 Mg Tablet) 50 - 100 mg PO Q6H PRN PRN PRN Reason: Pain Score 4-5 Last Admin: 12/03/20 06:53 Dose: 100 mg Documented by: Zolpidem Tartrate (Zolpidem Tartrate 5 Mg Tablet) 5 mg PO QHS PRN PRN PRN Reason: INSOMNIA STROKE Vital Signs/Narrative: Vital Signs Temp Pulse Resp BP Pulse Ox 12/03/20 09:00 97.8 F 85 14 142/99 H 99 Medical Necessity - Tobacco Use Smoking Status: Current every day smoker Tobacco Use: Cigarettes Assessment/Plan ASSESSMENT Postop day 2 anterior cervical spinal fusion at C5-C6 and C6-C7 C6-C7 radiculopathy Leukocytosis [id number] History of ankylosing spondylitis IBS History of drug use/alcohol use Tobacco abuse PLAN -Blood sugars are much better today with changes in insulin -I would recommend he be discharged home on his baseline insulin doses if he is no longer getting steroids -Pain management per primary -Bowel regimen place -Recommend tobacco cessation to improve healing and recurrent issues -Suspect discharge today Inpatient E&M: 37877 Subs Hosp L2
[2020-12-03 13:26] LABS: Bedside Glucose 177 mg/dL (70-110)
[2020-12-03] MEDS: Insulin Lispro 100 UNIT/ML INSULN.PEN SC (13:33)
[2020-12-03 13:41] VITALS: BP 137/94; PULSE 86; RESP 14; TEMP 36.6; O2SAT 96
--- NOTE | 2020-12-03 13:42 | DCINST_ITS ---
Discharge Activity: May Not Drive, May not drive while taking narcotic pain medications., May Shower May shower in (days): 4 May resume sexual activity in: 10-14 days Weight Bearing Status: Full weight bearing Call your doctor if your incision/area has: Increased Pain/ Swelling, Foul Smelling Discharge, Swelling at the incision site Call your doctor if you observe: Fever of 101 or Higher, Shortness of breath, Chest pain, Calf discomfort, Uncontrolled pain Remove Dressing in (days):: 3 Allergies/Adverse Reactions: Allergies No Known Allergies Allergy (Verified 11/25/20 15:02) Medications to take at Discharge multivitamin 1 tab PO DAILY 11/03/20 insulin glargine 100 unit/mL (3 mL) subcutaneous pen 20 unit SC QPM ml 11/09/20 hydrocodone 7.5 mg-acetaminophen 325 mg tablet 1 tablet PO Q6H PRN #40 tablet 11/21/20 Insulin Lispro [Humalog Kwikpen] 6 unit SC TID 11/25/20 Primary Care Physician: Susan Shen MD [Primary Care Provider] - Test Results: Test results from this visit will be discussed in further detail at your follow- up appointment, if applicable. Please Follow Up With: Dr Marie When: has appointment
--- NOTE | 2020-12-03 13:48 | DS.PCM_ITS ---
Discharge Summary Date of Admission: 12/01/20 Date of Discharge: 12/03/20 Summary: This patient was admitted on December 01, 2020. He has been discharged on December 03, 2020. And diagnosis was herniated disc with severe left C6 and C7 radiculopathies with neurological deficits and intractable pain. Charge diagnoses are the same. Is 1 hospital the date of admission the patient underwent a two-level anterior cervical discectomy with interbody fusion at C5-6 and C6-7. He tolerated the procedure well. I change his dressing yesterday and it was healing well and the drain was removed. Kept in 1 more day because of his labile blood glucose his blood sugars are under reasonable control now. Operatively he has reported complete relief of his left arm pain. Severe extensor weakness that he had on of the left wrist is essentially resolved he has very good strength now. Said strength is still poor but the pain is gone. Discharge today his dressing is dry. Voice is relatively clear only a little hoarse. He has no Dhiraj syndrome. Following without difficulty. Be given hydrocodone 7.5 mg for pain. He was told that he could start eating a regular diet now. And remove the dressing in 3 days and start taking showers in 4 days. Not to put any substance other than soap and water on the incision for now. Not to expose the fresh incision to the sun this first summer. Able to drive after I see him in the clinic in 13 days. He is to call me should he have any unexpected problems that are unseen at this time. 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 He is discharged as of today. - Physical Exam Vitals/I&O's: Vital Signs Temp Pulse Resp BP Pulse Ox 97.8 F 86 14 137/94 H 96 12/03/20 13:41 12/03/20 13:41 12/03/20 13:41 12/03/20 13:41 12/03/20 13:41 Oxygen Flow Rate (L/min) 6 Oxygen Delivery Method Room Air Weight: 130 lb Body Mass Index (BMI) 23.0 Finger Stick Blood Glucose 366 Intake and Output for Last 24 Hours 12/01/20 12/02/20 12/03/20 23:59 23:59 23:59 Intake Total 2666.83 / 2666.83 3050 / 3050 Output Total 950 / 950 5250 / 5250 Balance 1716.83 / 1716.83 -2200 / -2200 Laboratory Results 12/02/20 16:56: POC Glucose 232 H 12/02/20 22:57: POC Glucose 239 H 12/03/20 05:21: POC Glucose 118 H 12/03/20 13:22: POC Glucose 177 H Current Medications Acetaminophen (Acetaminophen 500 Mg Tablet) 1,000 mg PO Q8 [facility] Last Admin: 12/03/20 13:34 Dose: 1,000 mg Documented by: Enteral Nutritional Formula (Ensure Surgery 237 Ml Liquid) 237 ml PO TIDCM [facility] Last Admin: 12/03/20 13:38 Dose: 237 ml Documented by: Famotidine (Famotidine 20 Mg Tablet) 20 mg PO BID [facility] Last Admin: 12/03/20 08:22 Dose: 20 mg Documented by: Sodium Chloride () 250 mls @ 15 mls/hr IV .[id number] PRN PRN Reason: Saline Flush Sodium Chloride () 250 mls @ 15 mls/hr IV .[id number] PRN PRN Reason: Additional IVPB Infusion Insulin Glargine (Insulin Glargine 100 Units/Ml Pen) 30 units SC QHS [facility] Last Admin: 12/02/20 22:58 Dose: 30 u Documented by: Insulin Human Lispro (Insulin Lispro 100 Unit/Ml Insuln.Pen) 0 unit SC Q6 [facility]; Protocol Last Admin: 12/03/20 13:33 Dose: 1 units Documented by: Insulin Human Lispro (Insulin Lispro 100 Unit/Ml Insuln.Pen) 10 unit SC TIDCM [facility] Last Admin: 12/03/20 13:34 Dose: 10 u Documented by: Morphine Sulfate (Morphine 4 Mg/Ml Syringe) 2 - 4 mg IV Q2H PRN PRN PRN Reason: Pain Score 6-10 Last Admin: 12/02/20 02:22 Dose: 4 mg Documented by: Ondansetron HCl (Ondansetron 4 Mg/2 Ml Vial) 4 mg IV Q8H PRN PRN PRN Reason: NAUSEA Senna/Docusate Sodium (Senna/Docusate Sodium 1 Tablet) 2 tablet PO BID [facility] Last Admin: 12/03/20 08:21 Dose: 2 tablet Documented by: Sodium Chloride (0.9% Saline Lock 10 Ml Syringe) 10 - 40 ml IV UD PRN PRN Reason: SALINE FLUSH Last Admin: 12/01/20 15:55 Dose: 10 ml Documented by: Tramadol HCl (Tramadol 50 Mg Tablet) 50 - 100 mg PO Q6H PRN PRN PRN Reason: Pain Score 4-5 Last Admin: 12/03/20 13:34 Dose: 100 mg Documented by: Zolpidem Tartrate (Zolpidem Tartrate 5 Mg Tablet) 5 mg PO QHS PRN PRN PRN Reason: INSOMNIA
== END 2020-12-03 14:45 | disposition home or self-care (01) ==
LOC: SDC 15:53 → MS3 15:53
PROVIDERS: Anesthesiology; Hospitalist; Admitting Provider Orthopaedic Surgery; PCP Internal Medicine; Referring Provider Orthopaedic Surgery; Visit Provider Internal Medicine
PROC: (CPT 22551; principal; 2020-12-01 07:00)
DX: M50.122 Cervical disc disorder at C5-C6 level with radiculopathy (principal); Z20.828 Contact with and (suspected) exposure to other viral communicable diseases; E11.9 Type 2 diabetes mellitus without complications; K58.9 Irritable bowel syndrome, unspecified; E78.1 Pure hyperglyceridemia; F10.10 Alcohol abuse, uncomplicated; Z79.899 Other long term (current) drug therapy; Z79.4 Long term (current) use of insulin; F17.210 Nicotine dependence, cigarettes, uncomplicated
CPT/HCPCS: 22551; 22552; 22845; 22853; 36415; 72020; 80048; 82962; 83735; 85025; 86703; 86704; 86705; 86706; 86708; 86709; 86803; 87077; 87081; 87340; 87426; 88304; 93005; 96361; 96365; 96366; 96375; 96376; 99218; 99251; 99406; C1713; C9803; J7120; A4216; G0378; G0379; G0463; J3475

== ENCOUNTER 2020-12-16 09:49 | Emergency (ER) | payer OTHER, SELFPAY ==
[2020-12-14 09:01] VITALS: BMI 23.0
[2020-12-16 09:50] VITALS: BP 140/86; PULSE 78; RESP 18; TEMP 36.6; O2SAT 99; BMI 24.7
--- NOTE | 2020-12-16 10:02 | ED.VIS.GI ---
HPI HPI - GI History of Present Illness Chief Complaint: Nausea/Vomiting Detail of Chief Complaint: Patient presents with vomiting x 2 days. Informant: patient Abdominal Pain/Flank Pain Timing: Continuous Nausea/Vomiting/Emesis GI Symptom: Positive for Nausea and Vomiting Quality: Positive for Nonbilious; Negative for Blood streaks, Coffee ground and Hematemesis Severity: Severe Diarrhea/Melena/Hematochezia GI Symptom: Negative for Diarrhea Narrative Narrative: Patient complains of nausea and vomiting x2 days. He states he cannot keep anything down. Patient feels generally weak. He denies abdominal pain. He denies recent illness otherwise. Patient has not had any diarrhea. Patient states that he had not been urinating very much until yesterday when he started peeing more normally. Patient did have surgery 2 weeks ago and had an anterior fusion of his cervical spine. Patient has been without his [place] pain medication x4 days. He has not been checking his blood sugars because he ran out of test strips and he is a type II diabetic. Prior similar symptoms: No PFSH PFSH Medical History absessed tooth removal Alcohol abuse Ankylosing spondylitis Arthritis Depression Drug abuse Hypertriglyceridemia IBS (irritable bowel syndrome) Home Medications multivitamin 1 tab PO DAILY 11/03/20 [History Last Taken Unknown] insulin glargine 100 unit/mL (3 mL) subcutaneous pen 20 unit SC QPM ml 11/09/20 [History Last Taken Unknown] hydrocodone 7.5 mg-acetaminophen 325 mg tablet 1 tablet PO Q6H PRN #40 tablet 11/21/20 [Rx Last Taken Unknown] insulin lispro 6 unit SC TID 11/25/20 [History Last Taken Unknown] hydrocodone 7.5 mg-acetaminophen 325 mg tablet 1 tab PO Q6H PRN 14 Days #40 tab 12/14/20 [Rx Last Taken Unknown] ondansetron 4 mg PO Q6H PRN #10 tab 12/16/20 [Rx Last Taken Unknown] Allergy/AdvReac Type Severity Reaction Status Date / Time No Known Allergies Allergy Verified 12/16/20 09:51 Family History Other Family history not known due to adoption Surgical History H/O wisdom tooth extraction Social History household members: significant other and other details: and gf's mother housing: house current occupational status: employed Smoking Status: Former smoker Tobacco: How many years used: 25 alcohol intake: former year quit: 2015 substance use type: former substance user Date of last use: 02/23/2018 what type of physical activity do you participate in: none do you feel safe at home: Yes ROS ROS ED Constitutional Constitutional ED: Reports systems reviewed and no addt'l complaints, except as documented; Denies body ache(s), change in weight or chills Eyes Eyes: Denies acute decrease in peripheral vision, change in vision, double vision or loss of vision ENT ENT ED: Reports none; Denies ear pain, lip swelling, loss taste/smell, neck pain, otalgia or sore throat Cardiovascular Cardiovascular: Reports none; Denies abdominal pain, chest pain with activity, leg edema, lightheadedness, palpitations, rapid heart rate or syncope Respiratory/Chest Respiratory/Chest: Reports none; Denies change in mental status, dry cough, dyspnea, hemoptysis, shortness of breath at rest or shortness of breath with exertion Gastrointestinal Gastrointestinal: Reports none, nausea and vomiting; Denies abdominal pain, change in stool character, constipation, diarrhea, hematemesis, hematochezia, melena or rectal bleeding Genitourinary Genitourinary ED: Reports none; Denies abdominal discomfort, anuria, dysuria, genital pain, hematuria, polyuria or urinary frequency Musculoskeletal Musculoskeletal: Reports none; Denies arthralgias, back pain, difficulty walking, extremity pain, muscle weakness or myalgias Integumentary Reports none; Denies abscess or rash Neurologic Neurologic: Reports none; Denies abnormal gait, confusion, focal weakness, frequent falls, headache(s), loss of vision, numbness, paresthesias, radicular pain, vertigo or weakness Psychiatric Psychiatric: Reports systems reviewed and no addt'l complaints, except as documented and none; Denies behavioral changes, confusion, difficulty concentrating, hallucinations, suicidal ideation, tactile hallucinations or visual hallucinations Endocrine Endocrinology: Denies none, cold intolerance, excessive sweating, fatigue or heat intolerance Hematologic/Lymphatic Hematologic/Lymphatic: Reports none; Denies anemia, easy bleeding or easy bruising Allergic/Immunologic Allergic/Immunologic ED: Denies as per HPI, none, lip swelling, mouth swelling, throat swelling, tongue swelling or hives EXAM Physical Exam Const Vital Signs: 12/16/20 09:50 12/16/20 10:27 Temperature 98 F 98 F Temperature Source Temporal Temporal Pulse Rate 78 78 Respiratory Rate 18 18 Blood Pressure 140/86 H 140/86 H Blood Pressure Mean 104 104 Pulse Ox 99 99 Oxygen Delivery Method Room Air Room Air Positive well nourished and well developed General Appearance ED: well developed and NAD HEENT Reports TM's clear and dry mucous membranes; Denies moist mucous membranes normocephalic and atraumatic; Negative for trauma or tenderness Tympanic Membrane ED: Yes TM's clear Mouth ED: Yes dry mucous membranes Mouth: dry mucous membranes Eyes PERRL and EOMs intact bilaterally General Eye ED: Negative for pale conjunctiva or scleral icterus Neck no lymphadenopathy, supple and no JVD General: Negative for tenderness Chest Wall inspection of chest normal and palpation of chest normal Chest: Negative for tenderness Resp normal respiratory effort and clear to auscultation bilaterally Effort and Inspection: Negative for respiratory distress or pain with movement Auscultation: Negative for rhonchi, wheezes or diminished lung sounds Cardio regular rate, regular rhythm, S1 normal heart sound, S2 normal heart sound and no murmurs Peripheral Pulses: pulses 2+ throughout GI normal to inspection, nondistended, normoactive bowel sounds, soft to palpation, non-tender, non-distended and no masses Back/Spine no CVA tenderness and no thoracic nor lumbar tenderness Extremity normal to inspection General Extremety ED: Negative for edema General Extremity: Negative for edema Neuro oriented x3, CN's II-XII intact bilaterally, no sensory deficits noted and gait normal Sensorium / Orientation: awake, alert, oriented to person, oriented to place and oriented to time Motor Exam: strength 5/5 throughout and strength abnormal Psych mental status grossly normal Skin no rashes or lesions noted and no wounds MDM MDM MDM Narrative Medical decision making narrative: Patient is a slightly elevated white blood cell count which I suspect is likely reactive from retching. Patient was treated with 1 dose of Zofran and had no further vomiting in the department. He was given 2 L of saline and he feels markedly improved. On repeat examination he has no abdominal pain and wants to eat. He was able to tolerate a p.o. challenge. Lab Data Attestation: I reviewed the patient's lab results. Labs: Laboratory Results - last 24 hr 12/16/20 12/16/20 12/16/20 10:15 10:15 10:22 WBC 13.1 H RBC 5.02 Hgb 15.8 Hct 45.3 MCV 90.2 MCH 31.5 MCHC 34.9 RDW Std Deviation 38.6 RDW Coeff of Lary 11.9 Plt Count 328 MPV 8.4 Immature Gran % (Auto) 0.500 Neut % (Auto) 84.3 H Lymph % (Auto) 9.1 L [place] % (Auto) 5.7 Eos % (Auto) 0.1 Baso % (Auto) 0.3 Absolute Neuts (auto) 11.1 H Absolute Lymphs (auto) 1.19 Nucleated RBC % 0 Sodium 129 L Potassium 3.5 Chloride 90 L Carbon Dioxide 31.0 Anion Gap 8 BUN 18 Creatinine 0.85 Estim Creat Clear Calc 86.54 Est GFR (MDRD) Af Amer 126 Est GFR (MDRD) Non-Af 104 BUN/Creatinine Ratio 21.1 H Glucose 274 H Calcium 9.4 Total Bilirubin 0.80 AST 17 ALT 32 Alkaline Phosphatase 152 H Total Protein 8.5 H Albumin 4.2 Globulin 4.3 H Albumin/Globulin Ratio 1.0 Lipase 43 L Urine Color Urine Clarity Urine pH Ur Specific [place] Urine Protein Urine Glucose (UA) Urine Ketones Urine Occult Blood Urine Nitrite Urine Bilirubin Urine Urobilinogen Ur Leukocyte Esterase Urine RBC Urine WBC Ur Squamous Epith Cells Urine Bacteria Urine Mucus POC Glucose 245 H 12/16/20 11:45 WBC RBC Hgb Hct MCV MCH MCHC RDW Std Deviation RDW Coeff of [place]ary Plt Count MPV Immature Gran % (Auto) Neut % (Auto) Lymph % (Auto) [place] % (Auto) Eos % (Auto) Baso % (Auto) Absolute Neuts (auto) Absolute Lymphs (auto) Nucleated RBC % Sodium Potassium Chloride Carbon Dioxide Anion Gap BUN Creatinine Estim Creat Clear Calc Est GFR (MDRD) Af Amer Est GFR (MDRD) Non-Af BUN/Creatinine Ratio Glucose Calcium Total Bilirubin AST ALT Alkaline Phosphatase Total Protein Albumin Globulin Albumin/Globulin Ratio Lipase Urine Color Yellow Urine Clarity Sl. Cloudy Urine pH 7.0 Ur Specific [place] 1.010 Urine Protein Negative Urine Glucose (UA) 1000 H Urine Ketones 150 H Urine Occult Blood Negative Urine Nitrite Negative Urine Bilirubin Negative Urine Urobilinogen Normal Ur Leukocyte Esterase Negative Urine RBC 0-5 SEEN Urine WBC 0-5 SEEN Ur Squamous Epith Cells 0-5 SEEN Urine Bacteria 1+ Urine Mucus 0 SEEN POC Glucose Discharge Plan Triage Chief Complaint: Nausea/Vomiting ED Provider: Deisi Elizabeth Dx/Rx/DC Orders Clinical Impression: Vomiting alone, Dehydration, Hyperglycemia Instructions: ED Dehydration (Adult), ED Vomiting (Adult) Prescriptions: New ondansetron 4 mg tablet,disintegrating 4 mg PO Q6H PRN (Reason: nausea and vomiting) Qty: 10 RF: 0 No Action multivitamin Tablet 1 tab PO DAILY RF: 0 insulin glargine 100 unit/mL (3 mL) insulin pen 20 unit SC QPM RF: 0 hydrocodone-acetaminophen [[place]] 7.5-325 mg tablet 1 tablet PO Q6H PRN (Reason: pain) Qty: 40 RF: 0 hydrocodone-acetaminophen 7.5-325 mg tablet 1 tab PO Q6H PRN (Reason: pain) 14 Days Qty: 40 RF: 0 insulin lispro 100 UNIT/ML insulin pen 6 unit SC TID RF: 0 Primary Care Provider: Susan Shen Referrals: Susan Shen MD [Primary Care Provider] - 3-5 Days Disposition Disposition: Home, self care
[2020-12-16] MEDS: Ondansetron 4 MG/2 ML Vial IV (10:19)
[2020-12-16] MEDS: 0.9% Normal Saline 1,000 ML 1000 ML IV (10:20)
[2020-12-16 10:22] LABS: Absolute Lymphocyte Count 1.19 X10^3/uL (0.83-4.51); Absolute Neutrophil Count 11.1 X10^3/uL (2.0-7.7); Basophil# 0.04 X10^3/uL; Basophil% 0.3 % (0-1); Eosinophil# 0.01 X10^3/uL; Eosinophils% 0.1 % (0-5); Hematocrit 45.3 % (40-54); Hemoglobin 15.8 g/dL (13.0-16.5); Lymphocyte # 1.19 X10^3/ul (0.83-4.51); Lymphocyte % 9.1 % (19-41); Mean Corp Hgb Conc 34.9 g/dL (32-36); Mean Corpuscular Hgb 31.5 pg (27.0-32.0); Mean Corpuscular Volume 90.2 fL (80-94); Mean Platelet Vol. 8.4 fl (6.2-12.0); Monocyte# 0.75 X10^3/uL; Monocyte% 5.7 % (0-10); NRBC Flagged by Analyzer 0 % (0-5); Neutrophil # 11.08 X10^3/uL (2.7-7.7); Neutrophil % 84.3 % (47-70); Platelet Count 328 K/mm3 (150-450); RBC Distribution Width CV 11.9 % (11.6-14.6); RBC Distribution Width SD 38.6 fl (35.1-43.9); Red Blood Count 5.02 M/mm3 (4.6-6.2); White Blood Count 13.1 K/mm3 (4.4-11.0)
[2020-12-16 10:27] VITALS: BP 140/86; PULSE 78; RESP 18; TEMP 36.6; O2SAT 99
[2020-12-16 10:30] LABS: Bedside Glucose 245 mg/dL (70-110)
[2020-12-16 10:37] LABS: AST(SGOT) 17 U/L (15-37); Alanine Aminotransfer ALT/SGPT 32 U/L (16-61); Albumin, Serum 4.2 g/dL (3.2-5.0); Alkaline Phosphatase 152 U/L (45-117); Anion Gap 8 (5-15); BUN 18 mg/dL (7-18); BUN/Creat Ratio 21.1 RATIO (10-20); Calcium,Total 9.4 mg/dL (8.5-10.1); Chloride 90 mmol/L (98-107); Creatinine, Serum 0.85 mg/dL (0.70-1.30); EST Glomerular Filtration Rate 104 mL/min (>60); Est Glom Filt Rate - Afr Amer 126 mL/min (>60); Estimated Creatinine Clearance 86.54 ml/min; Globulin 4.3 g/dL (2.2-4.2); Glucose 274 mg/dL (74-106); Lipase 43 U/L (73-393); Potassium 3.5 mmol/L (3.5-5.1); Protein, Total 8.5 g/dL (6.4-8.2); Sodium Level 129 mmol/L (136-145)
[2020-12-16] MEDS: Insulin Lispro 100 UNIT/ML INSULN.PEN SC (11:28)
[2020-12-16] MEDS: 0.9% Normal Saline 1,000 ML 999 ML IV (11:30)
[2020-12-16 11:50] LABS: Mucous, Urine 0 SEEN /hpf (<or=2+)
[2020-12-16 11:52] LABS: Color, Urine Yellow (Yellow); Glucose, Dipstick 1000 mg/dl (Normal); Leukocyte Esterase-Dipstick Negative /ul (Negative); Nitrite-Dipstick Negative (Negative); Occult Blood-Urine Negative /ul (Negative); Protein-Dipstick Negative (Negative); Urine Bilirubin Dipstick Negative (Negative); Urine Clarity Sl. Cloudy (Clear); Urine Urobilinogen Normal (Normal)
[2020-12-16 12:00] LABS: Ketone-Dipstick 150 mg/dl (Negative)
[2020-12-16 12:04] LABS: Bacteria 1+ /hpf (None Seen); Red Blood Cells-Urine 0-5 SEEN /hpf (0-5); Squamous Epithelial Cells - UA 0-5 SEEN /hpf (0-5); White Blood Cells 0-5 SEEN /hpf (0-5)
[2020-12-16 12:39] VITALS: BP 141/98; PULSE 76; RESP 17; O2SAT 98
== END 2020-12-16 12:40 | disposition home or self-care (01) ==
PROVIDERS: Emergency Provider Emergency Medicine; PCP Internal Medicine
DX: R11.10 Vomiting, unspecified (principal); E86.0 Dehydration; E11.65 Type 2 diabetes mellitus with hyperglycemia; M45.9 Ankylosing spondylitis of unspecified sites in spine; M19.90 Unspecified osteoarthritis, unspecified site; K58.9 Irritable bowel syndrome, unspecified; Z79.4 Long term (current) use of insulin; Z87.891 Personal history of nicotine dependence
CPT/HCPCS: 80053; 81001; 82962; 83690; 85025; 96361; 96374; 99283; J7030; J2405

== ENCOUNTER 2021-09-28 10:42 | Outpatient (CLI) | payer OTHER, SELFPAY | END 2021-09-28 23:59 | disposition home or self-care (01) | LOC: LABSPEC 10:44 | PROVIDERS: PCP Internal Medicine; Referring Provider Nurse Practitioner Family; Visit Provider Nurse Practitioner Family | DX: R05.9 Cough, unspecified (principal); Z20.822 Contact with and (suspected) exposure to COVID-19 | CPT/HCPCS: 87635; U0003; U0005 ==

== ENCOUNTER → 2023-02-07 | Outpatient (CLI) | payer BC, SELFPAY ==
--- NOTE | 2023-02-07 17:12 | MRI_ITS ---
INDICATION: pain, HX PRIOR SURGERY 11/2020, PAIN HAS RETURNED EXAMINATION: MRI - MR Spine Cervical W/O Contrast TECHNIQUE: Multiplanar and multisequence MR images of the cervical spine were performed. IV Contrast Dosage and Agent: None. COMPARISON: November 18, 2020. FINDINGS: VERTEBRAE: Metal artifact extends from C5 through C7 consistent with interval anterior cervical disc fusion. VERTEBRAL ALIGNMENT: Normal, including the craniocervical junction and cervicothoracic junction. No spondylolisthesis. There is preservation of the normal cervical lordosis. CERVICAL SPINAL CORD: Mild flattening the cord anteriorly at C4-5 with moderate flattening the cord anteriorly at C5-6 and moderate flattening the cord anteriorly eccentric to the left at C6-7. Flattening of the cord appears stable as compared to the prior study. No evidence of cord signal abnormality. C2/C3: Moderate disc desiccation. C3/C4: Moderate disc desiccation, mild disc bulging. C4/C5: Moderate disc desiccation, mild disc osteophyte, bilateral facet arthropathy and uncovertebral joint disease with mild bilateral neural foraminal encroachment. C5/C6: Moderate disc bulging eccentric to the right with moderate central stenosis. Bilateral facet arthropathy and uncovertebral joint disease with moderate right and severe left neural foraminal encroachment. Findings at this level are stable. C6/C7: Moderate disc osteophyte eccentric to the left with moderate central stenosis, bilateral facet arthropathy and uncovertebral joint disease with severe bilateral neural foraminal encroachment. Findings at this level are stable. C7/T1: Moderate disc desiccation, mild disc osteophyte, bilateral facet arthropathy and uncovertebral joint disease with moderate bilateral neural foraminal encroachment. NECK SOFT TISSUES: No prevertebral soft tissue swelling. There is no cervical adenopathy. MRI/Spine Cervical (Routine) IMPRESSION: Interval anterior cervical disc fusion C5-C7. Remainder findings are stable. Mild disc bulging C3-4, mild disc osteophyte C4-5. C5-6 moderate disc bulging eccentric to the right. C6-7 moderate disc osteophyte eccentric to left. Multilevel degenerative disc disease, central stenosis, facet arthropathy, flattening of the cord anteriorly, uncovertebral joint disease and neural foraminal encroachment as above. Electronically Signed: Jon Gtz MD, AILYN at 10:07 EDT ,
== END | disposition home or self-care (01) ==
LOC: MRI 17:03
PROVIDERS: PCP Internal Medicine; Referring Provider Orthopaedic Surgery; Visit Provider Orthopaedic Surgery
DX: M50.20 Other cervical disc displacement, unspecified cervical region (principal); Z98.1 Arthrodesis status
CPT/HCPCS: 72141

== ENCOUNTER 2025-05-24 21:26 | Emergency (ER) | payer OTHER, SELFPAY ==
[2025-05-24 21:27] VITALS: BP 144/94; PULSE 80; RESP 18; TEMP 36.9; O2SAT 98; BMI 25.3
--- NOTE | 2025-05-24 21:40 | RAD_ITS ---
PROCEDURE: ANKLE MIN 3 VIEWS; FEMUR MIN 2 VIEWS; TIBIA FIBULA 2 VIEWS 05/24/2025 REASON FOR EXAM: FALL TECHNIQUE: Procedure Code: RADANK; RADFEM; RADTF Modality: DX Procedure: ANKLE MIN 3 VIEWS; FEMUR MIN 2 VIEWS; TIBIA FIBULA 2 VIEWS Laterality: Left FINDINGS: A couple of the provided images, there appears to be a minimally depressed fracture of the lateral tibial plateau, best appreciated on 1 of the AP views of the left femur. No dislocation. No other fracture is clearly identified. The ankle mortise is grossly intact. No focal soft tissue swelling. RAD/Ankle min 3 Views IMPRESSION: Probable minimally depressed fracture of the lateral tibial plateau. Consider further evaluation with dedicated radiographs of the left knee or a CT scan. Reading Location: [id number]
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
--- NOTE | 2025-05-24 21:40 | RAD_ITS ---
PROCEDURE: ANKLE MIN 3 VIEWS; FEMUR MIN 2 VIEWS; TIBIA FIBULA 2 VIEWS 05/24/2025 REASON FOR EXAM: FALL TECHNIQUE: Procedure Code: RADANK; RADFEM; RADTF Modality: DX Procedure: ANKLE MIN 3 VIEWS; FEMUR MIN 2 VIEWS; TIBIA FIBULA 2 VIEWS Laterality: Left FINDINGS: A couple of the provided images, there appears to be a minimally depressed fracture of the lateral tibial plateau, best appreciated on 1 of the AP views of the left femur. No dislocation. No other fracture is clearly identified. The ankle mortise is grossly intact. No focal soft tissue swelling. RAD/Femur Min 2 Views IMPRESSION: Probable minimally depressed fracture of the lateral tibial plateau. Consider further evaluation with dedicated radiographs of the left knee or a CT scan. Reading Location: [id number]
--- NOTE | 2025-05-24 21:40 | RAD_ITS ---
PROCEDURE: ANKLE MIN 3 VIEWS; FEMUR MIN 2 VIEWS; TIBIA FIBULA 2 VIEWS 05/24/2025 REASON FOR EXAM: FALL TECHNIQUE: Procedure Code: RADANK; RADFEM; RADTF Modality: DX Procedure: ANKLE MIN 3 VIEWS; FEMUR MIN 2 VIEWS; TIBIA FIBULA 2 VIEWS Laterality: Left FINDINGS: A couple of the provided images, there appears to be a minimally depressed fracture of the lateral tibial plateau, best appreciated on 1 of the AP views of the left femur. No dislocation. No other fracture is clearly identified. The ankle mortise is grossly intact. No focal soft tissue swelling. RAD/Tibia & Fibula 2 Views IMPRESSION: Probable minimally depressed fracture of the lateral tibial plateau. Consider further evaluation with dedicated radiographs of the left knee or a CT scan. Reading Location: [id number]
[2025-05-24] MEDS: 0.9% Normal Saline (1000mL) 1,000 ML 999 ML IV (21:48)
[2025-05-24 21:56] LABS: Hematocrit 39.5 % (40-54); Hemoglobin 13.3 g/dL (13.0-16.5); Immature Granulocytes Count 0.030 X10^3/uL (0.0-0.0); Mean Corp Hgb Conc 33.7 g/dL (32-36); Mean Corpuscular Volume 90.6 fL (80-94); Mean Platelet Vol. 9.5 fl (6.2-12.0); NRBC Flagged by Analyzer 0 % (0-5); Platelet Count 241 K/mm3 (150-450); RBC Distribution Width CV 12.2 % (11.6-14.6); RBC Distribution Width SD 40.3 fl (35.1-43.9); Red Blood Count 4.36 M/mm3 (4.6-6.2); White Blood Count 8.3 K/mm3 (4.4-11.0)
--- NOTE | 2025-05-24 22:00 | RAD_ITS ---
PROCEDURE: CHEST 1 VIEW (PORTABLE) 05/24/2025 REASON FOR EXAM: TRAUMA TECHNIQUE: Frontal view of the chest. COMPARISON: None. FINDINGS: Lungs/Pleura: Clear. No pneumothorax or pleural effusion. Heart/Mediastinum: Normal in size. Bones/Soft tissues: No acute abnormality. Cervical ACDF hardware. RAD/Chest 1 View (Portable) IMPRESSION: No acute findings. Reading Location: [id number]
--- OUTSIDE RECORDS SUMMARY | 2025-05-24 22:01 | XMS RPT_ITS | CCD ---
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 Chloride 98 mmol/L Normal 98 - 107 [facility] Comment on above: Performed By: #### 2 55169 ####[facility],[address] [place] [address] 16291 CO2 28.4 mmol/L Normal 21.0 - 31.0 [facility] Comment on above: Performed By: #### 2 13691 ####[facility],[address] [place] [address] 28709 Creatinine 0.7 mg/dL Normal 0.7 - 1.3 [facility] Comment on above: Performed By: #### 2 64910 ####[facility],[address] [place] [address] 33137 eGFR (non-black) mL/min/{1.73_m2} Normal 60 - 999 [facility] Comment on above: Performed By: #### 2 15636 ####[facility],[address] [place] [address] 37788 Result Comment: ACCO RDING TO THE NATIONAL KIDNEY DISEASE EDUCATION PROGRAM(NKDE), A NORMAL eGFRIS A VALUE GREATER THAN OR EQUAL TO 60 ML/MIN/1.73 SQ METERS.CHRONIC KIDNEY DISEASE: <60mL/MIN/1.73 SQ METERSKIDNEY FAILURE: <15mL/MIN/1.73 SQ METERSTHIS TEST SHOULD ONLY BE USED FOR PATIENTS 18 YEARS OF AGE AND OLDER. eGFR (non-black) Normal [facility] Comment on above: Result Comment: BASI C METABOLIC PANEL Performed By: #### 2 [id number] ####[facility],[address] [place] [address] 72953 Glucose mass conc 348 mg/dL High 74 - 106 [facility] Comment on above: Performed By: #### 2 [id number] ####[facility],[address] [place] [address] 47587 Potassium molar conc 3.7 mmol/L Normal 3.5 - 5.1 [facility] Comment on above: Performed By: #### 2 63875 ####[facility],[address] [place] [address] 88637 Sodium 131 mmol/L Low 136 - 145 [facility] Comment on above: Performed By: #### 2 69326 ####[facility],[address] [place] [address] 31049 Urea nitrogen 16 mg/dL Normal 6 - 20 [facility] Comment on above: Performed By: #### 2 16965 ####[facility],[address] [place] [address] 41574 GLUCOSE BEDSIDEon 03-06-2017 GLU BEDSIDE 403 mg/dl High 60 - 100 [facility] Comment on above: Performed By: #### 2 82221 ####[facility],[address] [place] [address] 79350 Glucose mass conc Normal [facility] Comment on above: Result Comment: [facility] GLUCOSE TEST Performed By: #### 2 [id number] ####[facility] [address] Vital Signs Date Time Vital Sign Value Performing Clinician Facility 01-15-2025 13:25-0400 Body height 157.[address] Susan Shen MD Work Phone: [facility] 01-15-2025 13:25-0400 Body mass index (BMI) [Ratio] 25.6 kg/m2 Dr. Susan Shen MD Work Phone: [facility] 01-15-2025 13:25-0400 Body weight 63.[address] Susan Shen MD Work Phone: [facility] 01-16-2024 09:48-0400 Body temperature 97.16 [degF] DOTTIE LAL MD [address] [place] [address] 01-16-2024 09:48-0400 Diastolic blood pressure 65 mm[Hg] DOTTIE LAL MD [address] 01-16-2024 09:48-0400 Heart rate 75 /min DOTTIE LAL MD [address] 01-16-2024 09:48-0400 Respiratory rate 16 /min DOTTIE LAL MD [address] 01-16-2024 09:48-0400 Systolic blood pressure 96 mm[Hg] DOTTIE LAL MD [address] 01-16-2024 09:00-0400 Body temperature 96.8 [degF] DOTTIE LAL MD [address] 01-16-2024 09:00-0400 Systolic Blood Pressure Non-Invasive 94 mm[Hg] DOTTIE LAL MD [address] 01-16-2024 08:52-0400 Diastolic Blood Pressure Non-Invasive 62 mm[Hg] DOTTIE LAL MD [address] [place] [address] 01-16-2024 08:52-0400 Systolic Blood Pressure Non-Invasive 98 mm[Hg] DOTTIE LAL MD [address] [place] [address] 01-16-2024 08:50-0400 Heart rate 74 /min DOTTIE LAL MD [address] [place] [address] 01-16-2024 08:50-0400 Respiratory Rate - Anes 13 br/min DOTTIE LAL MD [address] [place] [address] 01-16-2024 08:49-0400 Diastolic Blood Pressure Non-Invasive 71 mm[Hg] DOTTIE LAL MD [address] [place] [address] 01-16-2024 08:49-0400 Systolic Blood Pressure Non-Invasive 107 mm[Hg] DOTTIE LAL MD [address] 01-16-2024 08:45-0400 Heart rate 72 /min DOTTIE LAL MD [address] [place] [address] 01-16-2024 08:45-0400 Respiratory Rate - Anes 13 br/min DOTTIE LAL MD [address] [place] [address] 01-16-2024 08:40-0400 Heart rate 73 /min DOTTIE LAL MD [address] [place] [address] 01-16-2024 08:40-0400 Respiratory Rate - Anes 11 br/min DOTTIE LAL MD [address] [place] [address] 01-16-2024 06:17-0400 Body weight 26.57 kg/m2 DOTTIE LAL MD [address] [place] [address] 01-16-2024 06:15-0400 Body height 157.5 cm DOTTIE LAL MD [address] [place] [address]-30-2024 06:15-0400 Body temperature 97.88 [degF] DOTTIE LAL MD [address] [place] [address] 01-16-2024 06:15-0400 Body weight 64.5 kg DOTTIE LAL MD [address] [place] [address] 01-16-2024 06:15-0400 Body weight 26 kg/m2 DOTTIE LAL MD [address] [place] [address] 01-16-2024 06:15-0400 Heart rate 80 /min DOTTIE LAL MD [address] [place] [address] 01-16-2024 06:15-0400 Respiratory rate 16 /min DOTTIE LAL MD [address] [place] [address] 01-10-2024 15:01-0400 Body height 157.5 cm DOTTIE LAL MD [address] [place] [address] 01-10-2024 15:01-0400 Body weight 65.9 kg DOTTIE LAL MD [address] [place] [address] 01-10-2024 15:01-0400 Body weight 26.57 kg/m2 DOTTIE LAL MD [facility] Encounters Encounter Date Encounter Type Care Provider Facility Start: 02-05-2025 ambulatory Susan Shen Facility :[facility] Start: 01-15-2025 End: 01-15-[address] Susan Shen MD Work Phone: [facility] Work Phone: Start: 01-15-2025 End: 01-15-[address] Jarrod Chand MD -[facility] Start: 01-16-2024 End: 01-16-2024 ambulatory DOTTIE LAL MD Facility:[facility] Start: 01-16-2024 End: 01-16-2024 SAME DAY STAY DOTTIE LAL MD [facility] Start: 02-07-2023 End: 02-07-[address] Susan Shen Work Phone: [facility] Work Phone: Start: 02-07-2023 End: 02-07-[address] [facility] Start: 01-24-2023 End: 01-24-[address] Susan Shen Work Phone: [facility] Start: 03-05-2017 End: 03-06-2017 Emergency department patient visit [facility] Procedures Date Procedure Procedure Detail Performing Clinician Start: 02-07-2023 MRI of cervical spine Vamsi Shen Work Phone: Start: 01-24-2023 X-ray of cervical spine Dr. Susan Shen Work Phone: Cervical arthrodesis GONZALEZ LAL MD Comment on above: plate Drainage of dental abscess B MYLES LAL MD Plan of Treatment Date Care Activity Detail Author Start: 01-15-2025 Plain X-ray of shoulder Shoulder min 2 Views [facility] Start: 01-15-2025 X-ray of cervical spine Cerv Spine 4 or 5 Views [facility] Start: 01-15-2025 XR Cervical spine 4 or 5 Views [facility] Start: 01-15-2025 XR Shoulder GE 2 Views [facility] Immunizations Immunization Date Immunization Notes Care Provider Fa cili 12-26-2020 SARS-CoV-2 (COVID-19 ) Ad26 vaccine, recombinant DOTTIE LAL MD [facility] Comment on above: Result Comment: 2023: TPV40 09-27-2018 influenza virus vaccine, unspecified formulation DOTTIE LAL MD [facility] 09-27-2018 tetanus toxoid, redu eloisa diphtheria toxoid, and acellular pertussis vaccine, adsorbed DOTTIE LAL MD [facility] 03-18-2014 tetanus toxoid, redu eloisa diphtheria toxoid, and acellular pertussis vaccine, adsorbed Dr. Susan Shen Work Phone: [facility] Payers Date Payer Category Payer Self-pay [id number] 2025 Unknown [id number] 2023 Unknown [id number] 1975 Unknown [id number] Unknown ANTHEM [id number] Unknown [id number] Unknown [employer] [id number] Unknown [id number] [id number] [id number] Unknown [id number] [id number] Unknown [id number] [id number] [id number] Social History Date Type Detail Facility Start: 01-24-2023 Tobacco smoking status NHIS Unknown if ever smoked [facility] Start: 12-01-[address] [facility] Start: 12-01-[address] [facility] Start: 12-01-2020 Spouse/ Signif icant Other [facility] Start: 12-16-[address] [facility] Start: 1975 Sex Assigned At Male [facility] Start: 01-10-2024 Tobacco smoking status Light tobacco smoker (finding) [facility] Start: 11-07-2023 Tobacco smoking status NHIS Ex-smoker (finding) [facility] Medical Equipment Procedure Code Equipment Code Equipment Origin al Text Equipment Identifier Dates Discectomy, spine, cervical, anterior approach, with fusion 2 Level Plate 45mm FDA Start: 12-01-2020 Discectomy, spine, cervical, anterior approach, with fusion F3D Cervical FDA Start: 12-01-2020 Discectomy, spine, cervical, anterior approach, with fusion PATCH,AMNION 2X3CM FDA Start: 12-01-2020 Discectomy, spine, cervical, anterior approach, with fusion PATCH,AMNION 2X3CM FDA Start: 12-01-2020 Discectomy, spine, cervical, anterior approach, with fusion STRIP,BONE CANC [id number] FDA Start: 12-01-2020 Discectomy, spine, cervical, anterior approach, with fusion 4.25 x 16 Variable Screws FDA Start: 12-01-2020 Discectomy, spine, cervical, anterior approach, with fusion 4.25 x 16 Variable Screws FDA Start: 12-01-2020 Discectomy, spine, cervical, anterior approach, with fusion 4.25 x 16 Variable Screws FDA Start: 12-01-2020 Discectomy, spine, cervical, anterior approach, with fusion 4.25 x 16 Variable Screws FDA Start: 12-01-2020 Discectomy, spine, cervical, anterior approach, with fusion 4.25 x 16 Variable Screws FDA Start: 12-01-2020 Discectomy, spine, cervical, anterior approach, with fusion 4.25 x 16 Variable Screws FDA Start: 12-01-2020 Discectomy, spine, cervical, anterior approach, with fusion [id number] allograft sponge strip FDA Start: 12-01-2020 Discectomy, spine, cervical, anterior approach, with fusion F3D Cervical FDA Start: 12-01-2020 Discectomy, spine, cervical, anterior approach, with fusion 2 Level Plate 45mm FDA Start: 12-01-2020 Discectomy, spine, cervical, anterior approach, with fusion F3D Cervical FDA Start: 12-01-2020 Discectomy, spine, cervical, anterior approach, with fusion PATCH,AMNION 2X3CM FDA Start: 12-01-2020 Discectomy, spine, cervical, anterior approach, with fusion PATCH,AMNION 2X3CM FDA Start: 12-01-2020 Discectomy, spine, cervical, anterior approach, with fusion STRIP,BONE CANC [id number] FDA Start: 12-01-2020 Discectomy, spine, cervical, anterior approach, with fusion 4.25 x 16 Variable Screws FDA Start: 12-01-2020 Discectomy, spine, cervical, anterior approach, with fusion 4.25 x 16 Variable Screws FDA Start: 12-01-2020 Discectomy, spine, cervical, anterior approach, with fusion 4.25 x 16 Variable Screws FDA Start: 12-01-2020 Discectomy, spine, cervical, anterior approach, with fusion 4.25 x 16 Variable Screws FDA Start: 12-01-2020 Discectomy, spine, cervical, anterior approach, with fusion 4.25 x 16 Variable Screws FDA Start: 12-01-2020 Discectomy, spine, cervical, anterior approach, with fusion 4.25 x 16 Variable Screws FDA Start: 12-01-2020 Discectomy, spine, cervical, anterior approach, with fusion [id number] allograft sponge strip FDA Start: 12-01-2020 Discectomy, spine, cervical, anterior approach, with fusion F3D Cervical FDA Start: 12-01-2020 Discectomy, spine, cervical, anterior approach, with fusion 2 Level Plate 45mm FDA Start: 12-01-2020 Discectomy, spine, cervical, anterior approach, with fusion F3D Cervical FDA Start: 12-01-2020 Discectomy, spine, cervical, anterior approach, with fusion PATCH,AMNION 2X3CM FDA Start: 12-01-2020 Discectomy, spine, cervical, anterior approach, with fusion PATCH,AMNION 2X3CM FDA Start: 12-01-2020 Discectomy, spine, cervical, anterior approach, with fusion STRIP,BONE CANC [id number] FDA Start: 12-01-2020 Discectomy, spine, cervical, anterior approach, with fusion 4.25 x 16 Variable Screws FDA Start: 12-01-2020 Discectomy, spine, cervical, anterior approach, with fusion 4.25 x 16 Variable Screws FDA Start: 12-01-2020 Discectomy, spine, cervical, anterior approach, with fusion 4.25 x 16 Variable Screws FDA Start: 12-01-2020 Discectomy, spine, cervical, anterior approach, with fusion 4.25 x 16 Variable Screws FDA Start: 12-01-2020 Discectomy, spine, cervical, anterior approach, with fusion 4.25 x 16 Variable Screws FDA Start: 12-01-2020 Discectomy, spine, cervical, anterior approach, with fusion 4.25 x 16 Variable Screws FDA Start: 12-01-2020 Discectomy, spine, cervical, anterior approach, with fusion [id number] allograft sponge strip FDA Start: 12-01-2020 Discectomy, spine, cervical, anterior approach, with fusion F3D Cervical FDA Start: 12-01-2020 Blood Sugar Diagnostic (Blood Glucose Test) strip Start: 11-10-2020 End: 11-14-2020 [facility] Start: 11-14-2020 End: 11-14-2020 Blood Sugar Diagnostic (Blood Glucose Test) strip Start: 11-10-2020 End: 11-14-2020 Blood Sugar Diagnostic strip Start: 11-14-2020 End: 11-14-2020 [facility]ets misc Start: 11-14-2020 End: 11-14-2020 Blood Sugar Diagnostic (Blood Glucose Test) strip Start: 11-10-2020 End: 11-14-2020 Blood Sugar Diagnostic strip Start: 11-14-2020 End: 11-14-2020 [facility]ets misc Start: 11-14-2020 End: 11-14-2020 Functional Status Date Assessment Result Facility 01-16-2024 Functional Status Awake [facility] 01-16-2024 Functional Status [facility] 01-10-2024 Functional Status [facility] Mental Status Date Assessment Result Facility 01-16-2024 [facility] Status [facility] x [facility] 01-16-2024 Mental Status [facility] Clinical Notes 11-22-2020 to 01-16-2024 Note Date & Type Note Facility 01-16-2024 Hospital Discharge instructions Patient Education 01/16/2024 09:18:35 1-SDS Discharge Instructions Template (05/2018)(CUSTOM) [facility] SAME DAY SURGERY DISCHARGE INSTRUCTIONS PLEASE FOLLOW THE INSTRUCTIONS BELOW MARKED WITH AN X: _x__ Regular Diet: Start with clear liquids, then soup and crackers and gradually add other foods. _x__ Drink extra fluids. ___ Special Diet Instructions: ___ ACTIVITY: _x__ Avoid stress to suture line. Since you have had an anesthetic, it would be advisable not to drive, drink alcohol, or make major decisions over the next 24 hours. You may require more rest tonight and tomorrow. ___ May resume regular activity as tolerated. ___ Restrict activity as follows: ___ ___ Walk Only ___ ___ Do not go up and down stairs. ___ Do not ride in car until ___ ___ Do not drive car. ___ Do not have sexual intercourse. ___ No heavy lifting, pushing or straining. _x__ Other: _Follow attached post op instructions from your Doctor. Call office with any questions or concerns. __ BATHING/SHOWERING: ___ Sponge bathe until office visit. ___ Sitting in tub of warm water may relieve discomfort. ___ May tub bathe _x__ May shower ___ On day after surgery sit in tub of warm water to soak off dressing. DRESSING: ___ Keep operative area dry and clean for ___ _x__ Check the operative area for signs of bleeding. Apply pressure to the bleeding site if necessary and call your physician. ___ Change dressing as necessary using sterile dressing material or bandaid. ___ Reinforce dressing as necessary. ___ Change and care for wound as follows: ___ ___ Wear bra for ___ days following breast surgery for comfort. ___ Change drip pad as needed. ___ Wear scrotal support for comfort. WATCH FOR SIGNS OF INFECTION: (Usually appears 36-48 hours after surgery) Increased temperature (101 degrees Fahrenheit or higher) Redness or swelling Increased pain Foul odor or drainage. If you have any questions, please call your doctor at the number listed on your follow up instructions. Follow all instructions given to you by your physician. Please complete and return the survey you will be receiving in the mail to help us better serve our patients. Form: 1522 ([id number]) R: 11/25 Follow Up Care 12/30/2023 14:53:44 With:DOTTIE GRACIA MD, [facility] Address: [address] [facility] [place] [address]- [phone] When: Unknown Comments:Follow-up as scheduled [facility] 01-16-2024 Summary of episode note Discharge Instructions Thank you for allowing [facility] to assist you with your healthcare needs. The following is important discharge information regarding your hospital visit. What to do next Follow Up Appointments Follow Up with DOTTIE GRACIA MD, [facility] Where:[address] [facility] [place] [address]- [phone] Additional Information: Follow-up as scheduled The Following Activity and Diet Have Been Ordered for You No qualifying data available. No qualifying data available. The Following Equipment Has Been Ordered for You No qualifying data available. The Following Treatments Have Been Ordered for You Discharge Labs No qualifying data available. Discharge Radiology No qualifying data available. Other Therapies No qualifying data available. Post Acute Orders No qualifying data available. Someone Will Contact You Regarding These Home Health Referrals No home referrals have been ordered for you. No one will call you. Allergies metFORMIN Diarrhea Medications Please ask your primary doctor or pharmacist before taking any other medication not listed, including over the counter drugs, herbal medications, vitamins and or supplements as they may interact with your home medications. What How Much When Instructions Last Dose Unchanged insulin glargine (Lantus 100 units/ mL10 ml vial solution) 40 unit(s) Subcutaneous Daily at bedtime Unchanged insulin lispro (HumaLOG) (insulin lispro (Humalog) 100 units/ mL injectable solution) Subcutaneous Four (4) times daily-before meals and at bedtime Sliding scale Unchanged multivitamin (Multivitamin) 1 tab(s) by mouth Every day Please take this list to your next doctor s visit. Bring all medications you take, including over the counter medications, herbals and other supplements with you to your doctor s visit. Patients and families are reminded to discard old lists and to update any records with all medication providers or retail pharmacies. Education Materials [facility] SAME DAY SURGERY DISCHARGE INSTRUCTIONS PLEASE FOLLOW THE INSTRUCTIONS BELOW MARKED WITH AN X: _x__ Regular Diet: Start with clear liquids, then soup and crackers and gradually add other foods. _x__ Drink extra fluids. ___ Special Diet Instructions: ___ ACTIVITY: _x__ Avoid stress to suture line. Since you have had an anesthetic, it would be advisable not to drive, drink alcohol, or make major decisions over the next 24 hours. You may require more rest tonight and tomorrow. ___ May resume regular activity as tolerated. ___ Restrict activity as follows: ___ ___ Walk Only ___ ___ Do not go up and down stairs. ___ Do not ride in car until ___ ___ Do not drive car. ___ Do not have sexual intercourse. ___ No heavy lifting, pushing or straining. _x__ Other: _Follow attached post op instructions from your Doctor. Call office with any questions or concerns. __ BATHING/SHOWERING: ___ Sponge bathe until office visit. ___ Sitting in tub of warm water may relieve discomfort. ___ May tub bathe _x__ May shower ___ On day after surgery sit in tub of warm water to soak off dressing. DRESSING: ___ Keep operative area dry and clean for ___ _x__ Check the operative area for signs of bleeding. Apply pressure to the bleeding site if necessary and call your physician. ___ Change dressing as necessary using sterile dressing material or bandaid. ___ Reinforce dressing as necessary. ___ Change and care for wound as follows: ___ ___ Wear bra for ___ days following breast surgery for comfort. ___ Change drip pad as needed. ___ Wear scrotal support for comfort. WATCH FOR SIGNS OF INFECTION: (Usually appears 36-48 hours after surgery) Increased temperature (101 degrees Fahrenheit or higher) Redness or swelling Increased pain Foul odor or drainage. If you have any questions, please call your doctor at the number listed on your follow up instructions. Follow all instructions given to you by your physician. Please complete and return the survey you will be receiving in the mail to help us better serve our patients. Form: 1523 ([id number]) R: 11/25 Additional Information VACCINATE! IT SAVES LIVES! Members of the community who have not yet received the COVID-19 vaccine and would like to receive it can visit one of [facility] vaccine clinics. There are many vaccine clinic locations within the [facility]. For locations and available times, please visit [email or web address] It is important to note that some COVID mobile vaccine clinics are held outdoors and may be canceled in rainy or stormy conditions. To learn more about pediatric vaccinations (ages 5-11), we invite you to visit the [facility] webpage. [email or web address]/page [email or web address]-[email or web address] -[email or web address]-Questions.html To learn more about the COVID-19 vaccine, we invite you to visit the CDC website for a list of frequently asked questions.https://www.cdc.gov/coron avirus/2019-ncov/vaccines/faq.html [facility] Patient Portal Access Instructions: Stay connected with your healthcare team and access your personal medical information anytime with the [facility] Patient Portal. Please follow the directions below to create your [facility] account: 1.Access the email account you provided upon registration to the hospital/physician office.2.Look for an invitation email from [facility].3.Open the email and access the invitation link: Accept Invitation to [facility].4.Fill in the required heredia to create your account. To access your account, visit [email or web address]. Click the blue button labeled Access Patient Portal and then log in with the username and password that you created in the steps above. You will be able to view your test results, lab results, a summary of your visits, upcoming appointments and more. There is also a convenient messaging option where you can send secure messages to your provider. In addition, you will have the ability to download any documents or summaries to your computer and/or send the information securely to a physician. Remember that your healthcare information is confidential, so carefully consider who you will allow to register on the [facility] Patient Portal for access to your information. You can also access the [facility] Patient Portal on the [facility] jamarcus. Simply click on Patient Portal and then log into your account. If you would like to receive a full copy of your medical records, please contact the [facility] Medical Records Department by calling [phone], Saturday through Saturday between 8 a.m. and 4:30 p.m. HOW TO SAFELY DISPOSE OF PRESCRIPTION MEDICATIONS Please use one of the following methods to safely dispose of your unused medications. 1.Use a drug disposal kit: the drug disposal pouch allows you to safely discard your old and unused drugs. Ask your nurse to give you one when you are discharged.2.Visit a local take-back location: Many local pharmacies and police departments have programs that collect old and unwanted prescription drugs. Call your local pharmacy or go to http://[employer]/9N4Qb4f to find one close to you.3.Make use of household items: Use cat litter or old coffee grounds to dispose medications if other options are not available. Mix your drugs with these household products, seal them in an airtight container and throw it into the garbage. Call [facility]: [phone] to be sure your drugs can be disposed of in this way. Some medicines may require a different approach.4.Never flush your medications down the toilet. IF YOU HAVE BEEN PRESCRIBED AN OPIOID FOR PAIN If you have been prescribed an opioid (such as hydrocodone, oxycodone or morphine), it is critical to understand the possible side effects and risks of opioid pain medications. Even when taken as directed, opioids can have several side effects including: Tolerance, meaning you might need to take more of a medication for the same pain relief. Nausea, vomiting and/or constipation. Sleepiness, dizziness, dry mouth, confusion, depression or itching. Physical dependence, meaning you have withdrawal symptoms when a medication is stopped, can develop within a few days. KNOW YOUR RESPONSIBILITIES It is important to know exactly how much and how often to take the opioid pain medications you are prescribed. Never take opioids in higher amounts or more often than prescribed. Do not combine opioids with alcohol or other drugs that cause drowsiness, such as benzodiazepines, also known as benzos, including diazepam and alprazolam, muscle relaxants or sleep aids. Never sell or share prescription opioids. This is illegal. Store opioids in a secure place and out of reach of others (including children, family, friends and visitors). The last page of this document has been signed and retained as a CHART COPY. Signatures Patient Education Materials 1-SDS Discharge Instructions Template (05/2018)(CUSTOM) Medication Leaflets My discharge plan and instructions have been reviewed and explained to me and I,COLEMAN WATSON understand my current condition and have read and understand these discharge instructions. I have received a written copy of the plan/instructions. If I have questions, I am aware that I should contact my doctor. 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 Family's history: negative. Health Status Allergies: Nonallergic Reactions (Selected) Severity Not Documented MetFORMIN- Diarrhea., Allergies (1) ActiveSeverityReaction metFORMINDiarrhea Current medications: (Selected) Inpatient Medications Ordered Ciloxan 0.3% ophthalmic solution: 1 drop(s), Eye, right, q15min, PRN: PRE OP Cyclogyl 1% ophthalmic solution: 1 drop(s), Eye, right, q15min, PRN: PRE OP NS 1,000 mL: 75 mL/hr, Intravenous, Stop: 01/16/24 23:59:00 EDT Pred Forte 1% ophthalmic suspension: 1 drop(s), Eye, right, PREOP pharm Sensorcaine-MPF 37.5 mg + lidocaine 200 m.5 mg, 5 mL, 0 mL/hr, Ophthalmic, PREOP pharm diclofenac ophthalmic: 1 drop(s), Eye, right, q15min, PRN: PRE OP Pending Complete phenylephrine 2.5% ophthalmic solution: 1 drop(s), Eye, right, q15min Documented Medications Documented Lantus 100 units/mL10 ml vial solution: 40 unit(s), Subcutaneous, qHS, 10 mL, 0 Refill(s) Multivitamin: 1 tab(s), Oral, Daily, 0 Refill(s) insulin lispro (Humalog) 100 units/mL injectable solution: Subcutaneous, achs, Sliding scale, 0 Refill(s), Medications (6) Active Scheduled: (2) bupivacaine 0.75% 37.5 mg + lidocaine 4% 200 mg 37.5 mg 5 mL, Ophthalmic, PREOP pharm prednisoLONE acetate ophthalmic 1% Suspension 5 mL 1 drop(s), Eye, right, PREOP pharm Continuous: (1) NS (0.9% nacl) 1,000 mL 1,000 mL, Intravenous, 75 mL/hr PRN: (3) ciprofloxacin 0.3% ophthalmic soln bottle 1 drop(s), Eye, right, q15min cyclopentolate ophthalmic 1% 2 mL 1 drop(s), Eye, right, q15min diclofenac ophthalmic 0.1% Soln 2.5 mL 1 drop(s), Eye, right, q15min Problem list: Active Problems (3) Diabetes mellitus type 1 Tobacco use Traction detachment of retina, right eye Histories Past Medical History: No active or resolved past medical history items have been selected or recorded. Procedure history: Drain tooth abscess ([id number]). Cervical spinal fusion ([id number]). Comments: 01/10/2024 14:59 SHEREET - Niya Vanegas RN plate Social History: Social & Psychosocial Habits Alcohol 01/16/2024 Use: Current Frequency: 1-2 times per month Substance Abuse 01/16/2024 Use: Never Tobacco 01/16/2024 Tobacco Use: 5-9 cigarettes (between 1 Type: Cigarettes Smoking Cessation Information Instructed to not smoke d Home/Environment 01/16/2024 Domestic Concerns Denies Nutrition/Health 01/16/2024 Type of diet: Diabetic, Regular Appetite Good Eating Difficulties None Physical Examination Measurements from flowsheet : Measurements 01/16/2024 6:17 EDT Body Mass Index 26.57 kg/m2 01/16/2024 6:15 EDT Height 157.5 cm Height in inches 62 inch(es) Admission Weight 64.5 kg Weight Lbs 141.9 lb Weight Method Actual [place] Body Weight 54.62 kg Type of Scale Used Bed scale Body Mass Index 26 kg/m2 Admission Body Mass Index 26 m2 Patient is awake, alert, no acute distress. Oriented to time place situation. Warm and well-perfused. Abdomen is soft. Clear to auscultation bilaterally. Moves all extremities. Mallampati 1. Teeth are not loose, chippe,d or cracked. Patient is missing upper left molar Review / Management Documentation reviewed: Current records, Reviewed prior records. Assessment and Plan [place] [employer] (ASA) physical status classification: Class II. History of tobacco use 5 to 9 cigarettes/day, diabetes type 1. No history of anesthetic complication, personal or family mtz. Anesthetic Preoperative Plan Anesthetic technique: MAC. Induction: intravenously. Maintenance airway: NC. Postoperative pain management: Per surgeon. Risks discussed: nausea, vomiting, headache, sore throat, dental injury, hypotension, allergic reaction, serious complications. Informed consent: signed by patient. Digitally Signed by LEIGHTON TAVERA MD on 01/16/2024 07:30 AM [facility] 11-03-2021 Note HNO ID: [id number] Author: Bernardino Paulino LPN Service: ? Author Type: ? Type: Progress Notes Filed: 11/03/2021 1:31 PM Note Text: POPULATION HEALTH NAVIGATION OUTREACH Action/FYI Patient states he now follows with Dr Shen and Dr Garcia through [place]. Advised him DR Ross will be removed as his pcp. Patient verbalizes understanding. Pt identified by name and : NO Outreach Outcome/Action Spoke to patient or caregiver: Patient declined Reason for Outreach Care Gap or Scheduling/Wellness visits Payer: Payor: [facility] / [facility] / Product Type: PPO / Care Gap Reviewed:: Follow-up appointment Reminder: Reminder note to check Health Maintenance for items below Health Maintenance items due: COVID-19 VACCINE(1) Never done HEPATITIS C SCREENING Never done HIV SCREENING Never done DILATED RETINAL EXAM due on 08/19/2011 HBA1C due on 07/10/2019 URINE ALBUMIN:CREATININE RATIO due on 11/19/2019 LDL CHOLESTEROL due on 11/19/2019 DIABETIC FOOT EXAM due on 04/09/2020 ANNUAL PCP TEAM CHRONIC DISEASE VISIT due on 04/09/2020 INFLUENZA(1) due on 04/19/2021 Message Sent to Practice: Yes Navigation Signature: Bernardino Paulino LPN November 03, 2021 1:15 PM [facility] 11-03-2021 Note Patient Outreach (FA MPWS) COLEMAN WATSON ([id number]) 1975 M Date Time Provider Department 11/03/21 BERNARDINO PAULINO During your visit today, we recorded the following information about you: Bernardino Paulino LPN 11/03/2021 1:31 PM Signed POPULATION HEALTH NAVIGATION OUTREACH Action/FYI Patient states he now follows with Dr Shen and Dr Garcia through [place]. Advised him DR Ross will be removed as his pcp. Patient verbalizes understanding. Pt identified by name and : NO Outreach Outcome/Action Spoke to patient or caregiver: Patient declined Reason for Outreach Care Gap or Scheduling/Wellness visits Payer: Payor: [facility] / Plan: [facility] SELF FUNDED / Product Type: PPO / Care Gap Reviewed:: Follow-up appointment Reminder: Reminder note to check Health Maintenance for items below Health Maintenance items due: COVID-19 VACCINE(1) Never done HEPATITIS C SCREENING Never done HIV SCREENING Never done DILATED RETINAL EXAM due on 08/19/2011 HBA1C due on 07/10/2019 URINE ALBUMIN:CREATININE RATIO due on 11/19/2019 LDL CHOLESTEROL due on 11/19/2019 DIABETIC FOOT EXAM due on 04/09/2020 ANNUAL PCP TEAM CHRONIC DISEASE VISIT due on 04/09/2020 INFLUENZA(1) due on 04/19/2021 Message Sent to Practice: Yes Navigation Signature: Bernardino Paulino LPN November 03, 2021 1:15 PM Allergies As of Date: 11/03/2021 Noted Allergy Reaction GEMFIBROZIL 11/03/2007 14 - Other: See Comments Comments: dizziness METFORMIN 11/03/2007 6 - Diarrhea Date Reviewed: 04/09/2019 Reviewed by: Kiersten Mckeon - Fully Assessed Reason for Visit: Appointment [186] Cmt: follow up Prescriptions as of 11/03/2021 - blood sugar diagnostic (FREESTYLE LITE STRIPS) test strip Test blood sugar(s) 4 times daily. . Insulin: Yes - insulin NPH-insulin regular (HumuLIN 70/30) pen Inject 16 Units subcutaneously three times daily with meals. - COMPOUNDED PRESCRIPTION Nugenix-testosterone booster, tid - gabapentin (NEURONTIN) 300 mg capsule Take 1 capsule by mouth three times daily for 180 days. Take one(1) tablet daily at bedtime. If tolerated may increase to 3 times a day. - Insulin Notus, Disposable, (BD ULTRA-FINE STEPHANIE PEN NEEDLE) 32 gauge x 5/32 ndle Use one needle for each dose, 3 times daily. - metFORMIN ER (GLUCOPHAGE XR) 500 mg 24 hr tablet Take 2 tablets by mouth twice daily before meals. - lancets (FREESTYLE LANCETS) 28 gauge misc Test blood sugar(s) 4 times daily. Insulin: Yes - cyclobenzaprine (FLEXERIL) 10 mg tablet Take 1 tablet by mouth three times daily as needed for Muscle Spasm. - Blood-Glucose Meter (FREESTYLE LITE METER) monitoring kit 1 Each as needed (Test blood sugar 4 times a day or as needed). - MEN'S MULTI-VITAMIN ORAL Take 1 tablet by mouth once daily. 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 Author Type: Registered Nurse Type: Progress Notes Filed: 09/21/2021 3:51 PM Note Text: Called pt to see if he is still following with [facility] for his PCP/ diabetes care. Left detailed message on identified voicemail asking pt. to call back and let us know who he follows with. If/ when pt. calls back, please update PCP (or remove if not a [facility] provider), or make appt with [facility] provider for follow up care/ A1C levels. Thank you. Mena Maldonado RN [facility] 09-21-2021 Note Patient Outreach (FA MPWS) COLEMAN WATSON ([id number]) 1975 Date Time Provider Department 09/21/21 ROBERT ROSSMAX During your visit today, we recorded the following information about you: Mena Maldonado RN 09/21/2021 3:51 PM Signed Called pt to see if he is still following with [facility] for his PCP/ diabetes care. Left detailed message on identified voicemail asking pt. to call back and let us know who he follows with. If/ when pt. calls back, please update PCP (or remove if not a [facility] provider), or make appt with [facility] provider for follow up care/ A1C levels. Thank you. Mena Maldonado RN Allergies As of Date: 09/21/2021 Noted Allergy Reaction GEMFIBROZIL 11/03/2007 14 - Other: See Comments Comments: dizziness METFORMIN 11/03/2007 6 - Diarrhea Date Reviewed: 04/09/2019 Reviewed by: Kiersten Mckeon - Fully Assessed Reason for Visit: Recheck [92] Prescriptions as of 09/21/2021 - blood sugar diagnostic (FREESTYLE LITE STRIPS) test strip Test blood sugar(s) 4 times daily. . Insulin: Yes - insulin NPH-insulin regular (HumuLIN 70/30) pen Inject 16 Units subcutaneously three times daily with meals. - COMPOUNDED PRESCRIPTION Nugenix-testosterone booster, tid - gabapentin (NEURONTIN) 300 mg capsule Take 1 capsule by mouth three times daily for 180 days. Take one(1) tablet daily at bedtime. If tolerated may increase to 3 times a day. - Insulin Notus, Disposable, (BD ULTRA-FINE STEPHANIE PEN NEEDLE) 32 gauge x 5/32 ndle Use one needle for each dose, 3 times daily. - metFORMIN ER (GLUCOPHAGE XR) 500 mg 24 hr tablet Take 2 tablets by mouth twice daily before meals. - lancets (FREESTYLE LANCETS) 28 gauge misc Test blood sugar(s) 4 times daily. Insulin: Yes - cyclobenzaprine (FLEXERIL) 10 mg tablet Take 1 tablet by mouth three times daily as needed for Muscle Spasm. - Blood-Glucose Meter (FREESTYLE LITE METER) monitoring kit 1 Each as needed (Test blood sugar 4 times a day or as needed). - MEN'S MULTI-VITAMIN ORAL Take 1 tablet by mouth once daily. 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 Author Type: Admin Secretary Type: Progress Notes Filed: 11/22/2020 4:21 PM Note Text: Care Gap Reviewed: Follow-up appointment Phone call placed to patient. Pt identified by name and : NO Outreach Outcome/Action: Unable to reach patient: Left message If patient deferred or declined to schedule appointment, please indicate the reason(s): Yaniv Mirza [facility] 11-22-2020 Note Patient Outreach (FA MPWS) COLEMAN WATSON ([id number]) 1975 M Date Time Provider Department 11/22/20 SUZIE MIRZA During your visit today, we recorded the following information about you: Suzie Mirza MA 11/22/2020 4:21 PM Signed Care Gap Reviewed: Follow-up appointment Phone call placed to patient. Pt identified by name and : NO Outreach Outcome/Action: Unable to reach patient: Left message If patient deferred or declined to schedule appointment, please indicate the reason(s): Yaniv Mirza Allergies As of Date: 11/22/2020 Noted Allergy Reaction GEMFIBROZIL 11/03/2007 14 - Other: See Comments Comments: dizziness METFORMIN 11/03/2007 6 - Diarrhea Date Reviewed: 04/09/2019 Reviewed by: Kiersten Mckeon - Fully Assessed Reason for Visit: Appointment [186] Cmt: A1C Prescriptions as of 11/22/2020 Sig: BLOOD SUGAR DIAGNOSTIC STRIPS Test blood sugar(s) 4 times d* INSULIN NPH-REGULAR 70-30 U-1* Inject 16 Units subcutaneousl* COMPOUNDED PRESCRIPTION Nugenix-testosterone booster,* GABAPENTIN 300 MG CAPSULE Take 1 capsule by mouth three* PEN NEEDLE, DIABETIC 32 GAUGE* Use one needle for each dose,* METFORMIN ER 500 MG TABLET,EX* Take 2 tablets by mouth twice* LANCETS 28 GAUGE Test blood sugar(s) 4 times d* CYCLOBENZAPRINE 10 MG TABLET Take 1 tablet by mouth three * Patient not taking: Reported on 04/09/2019 BLOOD-GLUCOSE METER KIT 1 Each as needed (Test blood * MEN'S MULTI-VITAMIN ORAL Take 1 tablet by mouth once d* GLUCOSAMINE CHONDROITIN MAXIM* two tablets daily Problem List As Of Date 11/22/2020 Noted Resolved PAIN HIP JOINT [M25.559] 02/20/2007 Smoker [F17.200] 02/20/2007 Type 2 diabetes mellitus without complication, *04/09/2007 DEPRESSIVE DISORDER NEC [F32.9] 07/23/2007 Mixed hyperlipidemia [E78.2] 10/20/2009 Cervical spine arthritis [M47.812] 11/19/2009 Articular cartilage disorder of ankle [M24.173] 07/24/2011 Ankylosing spondylitis [M45.9] 05/09/2012 HLA B27 positive [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] 09/27/2018 Irritable bowel syndrome [K58.9] Medication management [Z79.899] 09/27/2018 Marijuana use [F12.90] 10/02/2018 Encounter Status:Closed by SUZIE MIRZA MA on 11/22/20 [facility] Evaluation + Plan note No data available for this section [facility] Evaluation note Diagnosis Onset Date Herniated nucleus pulposus, C4-5 left acute S/P cervical spinal fusion a [facility] Work Phone: Evaluation noteNo assessment information available [facility] Work Phone: Reason for referral (narrative)No reason for referral [facility] available[facility] Work Phone: Summary Purpose Family History No Family History Records Found Relationship Condition Age at Onset Recorded Date/T rito Not Specified Family history not k nown due to adoption Unknown Advance Directives No Advanced Directives Records Found Advance Directive Response Recorded Date/ Time Living Will No December 16, 2020 10:24am Power of Alining Inspector No December 16 10:24am Chief Complaint and Reason for Visit Chief Complaint CERVICAL RM 1 HNP, S/P CERVICAL FUSION Reason for Visit Herniated nucleus pu lposus, C4-5 left S/P cervical spinal fusion Chief Complaint Admit Date CERVICAL SPINE January 15, 2025 1:13p m RM 3 January 15, 2025 1:41p m Additional Source Comments (unrecognized sect ion and content) No Status Records FoundNo Status Records FoundNo Status Records FoundNo Status Records Found INFORMATION SOURCE (unrecogn ized section and content) DATE CREATED AUTHOR 02/12/2018 Luisito Salazar [facility] DATE CREATED AUTHOR AUTHOR'S ORGANIZ ATION 11/04/2021 [facility] DATE CREATED AUTHOR AUTHOR'S ORGANIZ ATION 01/23/2024 [facility] ([place]) DATE CREATED AUTHOR AUTHOR'S ORGANIZ ATION 02/10/2025 [facility] Care Teams (unrecognized sec tion and content) Team Status: Active Member Role Status Dates No Primary Care Physician Family Provider Active Dr. Susan Shen MD Primary Care Provider Active Team Status: Inactive Member Role Status Dates Dr. Susan Shen MD Primary Care Provider, Referri ng Provider Active Dr. Leopoldo Marie DO Attending Provider Active Team Status: Inactive Member Role Status Dates Dr. Susan Shen MD Primary Care Provider Active Dr. Jarrod Chand MD Attending Provider Active Team Status: Inactive Member Role Status Dates Dr. Susan Shen MD Primary Care Provider Active Dr. Leopoldo Marie DO Attending Provider, Referring P daviander Active Team Status: Active Member Role Status Dates Dr. Susan Shen MD Primary Care Provider Active Start: January 15, 2025 Dr. Susan Shen MD Referring Provider Active Start: January 15, 2025 PARISH Calzada Attending Provider Active Star t: January 15, 2025 Team Status: Inactive Member Role Status Dates Dr. Susan Shen MD Primary Care Provider Active Start: January 15, 2025 End: January 15, 2025 Dr. Jarrod Chand MD Attending Provider Active S tart: January 15, 2025 End: January 15, 2025 Team Status: Inactive Member Role Status Dates Dr. Susan Shen MD Primary Care Provider Active Start: January 15, 2025 End: January 15, 2025 Dr. Susan Shen MD Referring Provider Active Start: January 15, 2025 End: January 15, 2025 PARISH Calzada Attending Provider Active Star t: January 15, 2025 End: January 15, 2025 Goals (unrecognized section and content) Goals may be documented in a n alternate section No data available for this sectionGoals may be documented in an alternate sectionGoals may be documented in an alternate section FOR RECORDS PERTAINING TO PATIENTS WHO ARE OR HAVE BEEN ENROLLED IN A CHEMICAL DEPENDENCY/SUBSTANCEABUSE PROGRAM, SOME INFORMATION MAY BE OMITTED. This clinical summary was aggregated from multiple sources. Caution should be exercised in using it in the provision of clinical care. This summary normalizes information from multiple sources, and as a consequence, information in this document may materially change the coding, format and clinical context of patient data. In addition, data may be omitted in some cases. CLINICAL DECISIONS SHOULD BE BASED ON THE PRIMARY CLINICAL RECORDS. [facility] [employer] [facility]. provides no warranty or guarantee of the accuracy or completeness of information in this document.
--- NOTE | 2025-05-24 22:05 | CT_ITS ---
PROCEDURE: CT CHEST, ABD, PEL W/CONTRAST 05/24/2025 REASON FOR EXAM: [facility] TECHNIQUE: Chest, abdomen and pelvis CT with intravenous contrast. Coronal and Sagittal reconstruction series were provided. One or more dose reduction techniques were used (e.g., Automated exposure control, adjustment of the mA and/or kV according to patient size, use of iterative reconstruction technique. PATIENT PREPARATION: Per protocol ORAL CONTRAST TYPE: None. CONTRAST: Isovue-350 VOLUME: 100mL RADIATION DOSE SUMMARY: CTDlvol: 11.89 mGy DLP: 680 mGycm COMPARISON: None. FINDINGS: Mild bilateral basilar atelectatic pulmonary changes. Normal enhancement of the main pulmonary artery and right and left pulmonary arteries. Normal thoracic aorta and visualized great vessels. There is no demonstrated aortic dissection. Normal heart and pericardium. Normal mediastinum. Normal hilar regions. Normal visualized trachea and bronchi. The remaining lungs are well expanded. Normal remaining pulmonary parenchyma. Normal pleura. Normal liver. Normal gallbladder and extrahepatic biliary system. Normal spleen. Normal pancreas. Normal bilateral adrenal glands. Normal size of the right kidney. There is no right renal mass. There are no right renal calculi. There is no right hydronephrosis. Normal visualized right ureter. Right renal simple cyst measuring 1.5 cm. Normal size of the left kidney. There is no left renal mass. There are no left renal calculi. There is no left hydronephrosis. Normal visualized left ureter. Normal visualized stomach. Normal small intestine. Normal colon. The appendix is visualized and appears normal. There is no demonstrated peritoneal fluid. Mild atheromatous plaques of the abdominal aorta. Normal inferior vena cava. Normal retroperitoneum. Normal urinary bladder. There is no pelvic mass lesion or lymphadenopathy. There is no pelvic fluid. Normal abdominal wall. Moderate arthrosis of the sacroiliac joints. Diffuse spondylosis. CT/CT Chest, Abd, Pel w/Contrast IMPRESSION: No CT evidence of an acute traumatic abnormality. Reading Location: [place] [id number]
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
[2025-05-24 22:16] LABS: Prothrombin Time (Protime)PT. 13.2 SECONDS (11.7-14.9)
[2025-05-24 22:17] LABS: Partial Thromboplast Time 28.8 Seconds (24.1-36.2)
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
[2025-05-24 22:59] LABS: AST(SGOT) 21 U/L (<=37); Alanine Aminotransfer ALT/SGPT 18 U/L (<=46); Albumin, Serum 3.9 g/dL (3.5-5.0); Alkaline Phosphatase 157 U/L (40-129); Anion Gap 13 (5-15); BUN 18 mg/dL (4-19); BUN/Creat Ratio 18.3 RATIO (10-20); Bilirubin, Direct 0.10 mg/dL (0.00-0.30); Calcium,Total 9.3 mg/dL (7.6-11.0); Carbon Dioxide 23.7 mmol/L (21.0-32.0); Chloride 97 mmol/L (98-108); Estimated Creatinine Clearance 70.53 ml/min (50-250); Globulin 3.2 g/dL (2.2-4.2); Glucose 409 mg/dL (70-99); Potassium 4.9 mmol/L (3.3-5.1)
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
[2025-05-24 23:26] VITALS: BP 132/86; PULSE 79; RESP 15; O2SAT 93
[2025-05-25] MEDS: HYDROcodone Bitartrate/Apap 5/325 Tablet PO (01:01)
[2025-05-25 01:08] VITALS: BP 132/74; PULSE 65; RESP 15; TEMP 36.6; O2SAT 99
== END 2025-05-25 01:08 | disposition home or self-care (01) ==
PROVIDERS: Emergency Provider Emergency Medicine; PCP Internal Medicine; Visit Provider Emergency Medicine
DX: S82.142A Displaced bicondylar fracture of left tibia, initial encounter for closed fracture (principal); E11.9 Type 2 diabetes mellitus without complications; Y92.481 Parking lot as the place of occurrence of the external cause; F17.200 Nicotine dependence, unspecified, uncomplicated; S80.819A Abrasion, unspecified lower leg, initial encounter; M79.605 Pain in left leg; V13.4XXA Pedal cycle driver injured in collision with car, pick-up truck or van in traffic accident, initial encounter
CPT/HCPCS: 70450; 71045; 71260; 72125; 72170; 73552; 73590; 73610; 73700; 74177; 80048; 80076; 85025; 85610; 85730; 90715; 93005; 96361; 96374; 96375; 99285; Q9967; A4216; J2405